=== PATIENT | male | born 1995 | race Caucasian/White ===

== ENCOUNTER 2016-04-22 10:33 | Inpatient (IN) | payer MEDICARE, MEDICAID ==
[2016-04-22 11:39] LABS: Hematocrit 47 % (42-52); Hemoglobin 15.7 g/dl (14.0-18.0); Mean Corpuscular HGB Conc 33 g/dl (31-36); Mean Corpuscular Hemoglobin 27 pg (27-31); Mean Corpuscular Volume 80 fL (80-94); Mean Platelet Volume 7 um3 (7.4-10.4); Red Blood Count 5.94 10^6/ul (4.0-5.4); Red Cell Distribution Width 14 % (10.5-15); White Blood Count 5.9 10^3/ul (3.5-10.8)
[2016-04-22 11:58] LABS: Benzodiazepine Urine Screen None Detected (None Detect)
[2016-04-22 11:58] LABS: ALT 31 U/L (7-52); AST 24 U/L (13-39); Albumin 4.9 g/dL (3.2-5.2); Alkaline Phosphatase 68 U/L (34-104); Anion Gap 6 mmol/L (2-11); BUN/Creatinine Ratio 12.7 (8-20); Blood Urea Nitrogen 13 mg/dL (6-24); CO2 Carbon Dioxide 26 mmol/L (22-32); Calcium 9.6 mg/dL (8.6-10.3); Chloride 105 mmol/L (101-111); EGFR African American 117.5 (>60); EGFR Non-African American 91.3 (>60); Globulin 2.5 g/dL (2-4); Glucose 88 mg/dL (70-100); Potassium 4.3 mmol/L (3.5-5.0); Sodium 137 mmol/L (133-145); Total Protein 7.4 g/dL (6.4-8.9)
[2016-04-22 12:02] LABS: Urine Bilirubin Negative (Negative); Urine Glucose Negative (Negative); Urine Nitrite Negative (Negative)
[2016-04-22 12:17] LABS: Acetaminophen < 15 mcg/mL; Alcohol < 10 mg/dL (<10); Salicylate < 2.50 mg/dL (<30)
[2016-04-22 12:27] LABS: TSH (Thyroid Stimulating Horm) 2.07 mcIU/mL (0.34-5.60)
[2016-04-22] MEDS ORDERED: Al Hydrox/Mg Hydrox/Simet LIQ* 30 ML UDC PO PRN (20:48)
[2016-04-23] MEDS: Vitamin THERAPEUTIC TAB PO SCH (09:43)
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
[2016-04-23] MEDS ORDERED: Nicotine Inhaler* 10 MG AMP INH PRN (21:23)
[2016-04-24] MEDS: Vitamin THERAPEUTIC TAB PO SCH (09:20)
--- NOTE | 2016-04-24 11:23 | PN ---
MHU: Group Therapy Note - Service Type Service Type: 80525 Group Psychotherapy - Cognitive Behavioral Group Therapy ( CBT):Patient was attentive and participatory in CBT programming this morning, and remained in good behavioral control. Patient expressed positive insights regarding relevant treatment interventions and goals.
--- NOTE | 2016-04-24 15:44 | PN ---
Subjective - Subjective Service Type: 24576 Hosp care 15 min low complexity Subjective: Mike reports that his idleness has been contributory to worsening of voices and visions, and would like to have access to his Nook if the camera can be disabled. He reports a fluctuating mood, more down today. He has had no thoughts to harm himself or others. Objective - Appearance Appearance: Well Developed/Nourished, Healthy Appearing Dysmorphic Features: No Hygiene: Normal Grooming: Fairly Well Kept - Behavior Psychomotor Activities: Normal Exhibits Abnormal Movement: No - Attitude and Relatedness Attitude and Relatedness: Cooperative Eye Contact: Good - Speech Quality: Unpressured Latencies: Normal Quantity: Appropriate - Mood Patient's Decription of Mood: "Down today" - Affect Observed Affect: Fair Affect Consistent with: Euthymia - Thought Process Patient's Thought Process: Coherent, Goal Directed Thought Content: No Passive Wish, No Suicidal Planning, No Homicidal Ideation, No Paranoid Ideation - Sensorium Experiencing Hallucinations: Yes Type of Hallucinations: Visual: Yes, Auditory: Yes, Command: No - Level of Consciousness Level of Consciousness: Alert Orientation: Yes Intact, Yes Orientated to Time, Yes Orientated to Place, Yes Orientated to Person - Impulse Control Impulse Control: Intact - Insight and Judgement Insight and Judgement: Fair - Group Participation Particating in Group Activities: Yes - Medication Management Medication Management Adherence: Yes Assessment - Assessment Merits Inpatient Hospitalization: For Immediate Safety, For Stabilization, To Initiate Treatment, For Ongoing Evaluation, For Discharge Planning, Pending Safe DC Plan Inpatient DSM-IV Dx: Psychotic disorder, not otherwise specified. Rule out schizoaffective disorder, depressive type. Rule out schizophrenia. Also, rule out post-traumatic stress disorder with overtly psychotic experience, dissociative phenomenology. Clinical Impression: Mr. Katrina Reid is a 20-year-old male with a chronic psychotic disorder, most likely schizophrenia who reports worsened symptoms of psychosis with intrusive nightmares and with onset of malignant voices atop nearly constant background of usually benign voices. He seeks stabilization here against this troubling exacerbation of a chronic psychosis. We will be monitoring his mental status and safety. We will be encouraging his engagement in the therapeutic milieu and groups. We will be gathering collateral from his providers at [facility]. We will be considering with his providers whether a change of medication might be in order , although it does seem as though his report of circumstances would line up with having lost supports by transition from [facility] into independent living, so this may be the most productive change for him. Perhaps we can explore with him other living arrangements that may give him more supports. He states that when he does not have things to distract himself, the malignant psychotic experience worsens. He requests being able to use, for example his Nook reading device, which unfortunately has a camera and so we will not be able to permit this. We will try to find reading materials that may help him to stay distracted from his psychotic experience. 04.24.16 Today Mike reports worsening AH/VH with voices/visions of the more evil creatures that are part of his experience when he is not adequately occupied by, for example, reading on his nook. He agrees to take Zyprexa if these hallucinations persist and are disturbing. Plan - Plan Treatment Plan: Name: MIKE REID Birthdate: 1995 [id number] Abilify Maintenna due on the d. Add Zyprexa 5 mg po q4hrs prn agitation/ psychosis. Monitor MS and safety. Encourage groups/milieu. Gather collateral. Plan for discharge back to care with [facility]. Continued Medication Management: Different Medication Medications: Current Medications Acetaminophen (Tylenol Tab*) 650 mg PO Q4H PRN PRN Reason: PAIN or TEMP > 101 F Al Hydrox/Mg Hydrox/Simethicone (Maalox Plus*) 30 ml PO Q4H PRN PRN Reason: INDIGESTION Multivitamins (Theragran Tab*) 1 tab PO DAILY JOANN Last Admin: 04/24/16 09:20 Dose: Not Given Nicotine (Nicotine Inhaler*) 10 mg INH Q2H PRN PRN Reason: CRAVING Abilify Maintenna due 04.27.16 - Discharge Plan Discharge Plan: Outpatient Follow Up Outpatient Program: [facility]
[2016-04-24] MEDS ORDERED: OLANzapine TAB*ODT* 5 MG PO PRN (15:45)
--- NOTE | 2016-04-24 22:24 | ED ---
Estrellita Glaser Michael, scribed for Bandar Dumont MD on 04/22/16 at 1134 . Psychiatric Complaint - HPI Summary HPI Summary: 20 y/o male comes to the ED presenting with auditory hallucinations that have been present for the past month. The pt reports that he has not listened to the voices, but came into the ED just in case if they worsen. The PMHx is significant for hallucinations, depression, and SI attempt. He takes Ability shot once a month. - History Of Current Complaint Chief Complaint: EDMentalHealth Time Seen by Provider: 04/22/16 11:10 Hx Obtained From: Patient, Medical Records Onset/Duration: Gradual Onset, Lasting Weeks, Still Present Timing: Constant Severity Initially: Mild Severity Currently: Mild Character: Fearful Alleviating Factor(s): Nothing Associated Signs And Symptoms: Positive: Hallucinating - auditory delusions Related History: Positive For: Prior Psychiatric Issues Has Suicidal: Denies: Thoughts, With A Plan - Allergies/Home Medications Allergies/Adverse Reactions: Allergies Allergy/AdvReac Type Severity Reaction Status Date / Time Amoxicillin Allergy Unknown Hives Verified 04/24/16 14:11 PMH/Surg Hx/FS Hx/Imm Hx Psychiatric History: Reports: Hx Anxiety, Hx Depression, Hx Post Traumatic Stress Disorder, Hx Inpatient Treatment, Hx Community Mental Health Tx, Hx Bipolar Disorder Denies: Hx Eating Disorder, Hx of Violent Episodes Against Others - unable to confirm Infectious Disease History: No Infectious Disease History: Denies: Traveled Outside the [place] in Last 30 Days - Family History Known Family History: Positive: None Family History: pt denies a significant FHx - Social History Occupation: Student Lives: Alone Alcohol Use: None Hx Substance Use: No Substance Use Type: Reports: None Hx Tobacco Use: No Smoking Status (MU): Never Smoked Tobacco Review of Systems Negative: Fever Positive: Other - auditory hallucinations All Other Systems Reviewed And Are Negative: Yes Physical Exam Triage Information Reviewed: Yes Vital Signs On Initial Exam: Initial Vitals Temp Pulse Resp BP Pulse Ox 98.2 F 79 17 139/73 100 04/22/16 10:37 04/22/16 10:37 04/22/16 10:37 04/22/16 10:37 04/22/16 10:37 Vital Signs Reviewed: Yes Appearance: Positive: Well-Appearing, No Pain Distress Skin: Positive: Warm, Skin Color Reflects Adequate Perfusion Head/Face: Positive: Normal Head/Face Inspection Eyes: Positive: Normal ENT: Positive: Normal ENT inspection Neck: Positive: Supple, Nontender Respiratory/Lung Sounds: Positive: Clear to Auscultation, Breath Sounds Present Cardiovascular: Positive: RRR Abdomen Description: Positive: Nontender, Soft Bowel Sounds: Positive: Present Musculoskeletal: Positive: Normal Neurological: Positive: Normal, Sensory/Motor Intact Psychiatric: Positive: Depressed Diagnostics - Vital Signs Vital Signs Temp Pulse Resp BP Pulse Ox 04/22/16 10:37 98.2 F 79 17 139/73 100 - Laboratory Lab Results: Lab Results 04/22/16 04/22/16 04/22/16 Range/Units 11:29 11:29 11:35 WBC 5.9 (3.5-10.8) 10^3/ul RBC 5.94 H (4.0-5.4) 10^6/ul Hgb 15.7 (14.0-18.0) g/dl Hct 47 (42-52) % MCV 80 (80-94) fL MCH 27 (27-31) pg MCHC 33 (31-36) g/dl RDW 14 (10.5-15) % Plt Count 245 (150-450) 10^3/ul MPV 7 L (7.4-10.4) um3 Neut % (Auto) 56.6 (38-83) % Lymph % (Auto) 33.2 (25-47) % Upson % (Auto) 7.5 (1-9) % Eos % (Auto) 1.5 (0-6) % Baso % (Auto) 1.2 (0-2) % Absolute Neuts (auto) 3.4 (1.5-7.7) 10^3/ul Absolute Lymphs (auto) 2.0 (1.0-4.8) 10^3/ul Absolute Monos (auto) 0.4 (0-0.8) 10^3/ul Absolute Eos (auto) 0.1 (0-0.6) 10^3/ul Absolute Basos (auto) 0.1 (0-0.2) 10^3/ul Absolute Nucleated RBC 0.01 10^3/ul Nucleated RBC % 0.1 Sodium 137 (133-145) mmol/L Potassium 4.3 (3.5-5.0) mmol/L Chloride 105 (101-111) mmol/L Carbon Dioxide 26 (22-32) mmol/L Anion Gap 6 (2-11) mmol/L BUN 13 (6-24) mg/dL Creatinine 1.02 (0.67-1.17) mg/dL Est GFR ( Amer) 117.5 (>60) Est GFR (Non-Af Amer) 91.3 (>60) BUN/Creatinine Ratio 12.7 (8-20) Glucose 88 (70-100) mg/dL Calcium 9.6 (8.6-10.3) mg/dL Total Bilirubin 0.40 (0.2-1.0) mg/dL AST 24 (13-39) U/L ALT 31 (7-52) U/L Alkaline Phosphatase 68 (34-104) U/L Total Protein 7.4 (6.4-8.9) g/dL Albumin 4.9 (3.2-5.2) g/dL Globulin 2.5 (2-4) g/dL Albumin/Globulin Ratio 2.0 (1-3) TSH 2.07 (0.34-5.60) mcIU/mL Urine Color Yellow Urine Appearance Clear Urine pH 5.0 (5-9) Ur Specific [place] 1.019 (1.010-1.030) Urine Protein Negative (Negative) Urine Ketones Negative (Negative) Urine Blood Negative (Negative) Urine Nitrate Negative (Negative) Urine Bilirubin Negative (Negative) Urine Urobilinogen Negative (Negative) Ur Leukocyte Esterase Negative (Negative) Urine Glucose Negative (Negative) Salicylates < 2.50 (<30) mg/dL Urine Opiates Screen (None Detect) Acetaminophen < 15 mcg/mL Ur Barbiturates Screen (None Detect) Ur Phencyclidine Scrn (None Detect) Ur Amphetamines Screen (None Detect) U Benzodiazepines Scrn (None Detect) Urine Cocaine Screen (None Detect) U Cannabinoids Screen (None Detect) Serum Alcohol < 10 (<10) mg/dL 04/22/ Range/Units 11:35 WBC (3.5-10.8) 10^3/ul RBC (4.0-5.4) 10^6/ul Hgb (14.0-18.0) g/dl Hct (42-52) % MCV (80-94) fL MCH (27-31) pg MCHC (31-36) g/dl RDW (10.5-15) % Plt Count (150-450) 10^3/ul MPV (7.4-10.4) um3 Neut % (Auto) (38-83) % Lymph % (Auto) (25-47) % Upson % (Auto) (1-9) % Eos % (Auto) (0-6) % Baso % (Auto) (0-2) % Absolute Neuts (auto) (1.5-7.7) 10^3/ul Absolute Lymphs (auto) (1.0-4.8) 10^3/ul Absolute Monos (auto) (0-0.8) 10^3/ul Absolute Eos (auto) (0-0.6) 10^3/ul Absolute Basos (auto) (0-0.2) 10^3/ul Absolute Nucleated RBC 10^3/ul Nucleated RBC % Sodium (133-145) mmol/L Potassium (3.5-5.0) mmol/L Chloride (101-111) mmol/L Carbon Dioxide (22-32) mmol/L Anion Gap (2-11) mmol/L BUN (6-24) mg/dL Creatinine (0.67-1.17) mg/dL Est GFR ( Amer) (>60) Est GFR (Non-Af Amer) (>60) BUN/Creatinine Ratio (8-20) Glucose (70-100) mg/dL Calcium (8.6-10.3) mg/dL Total Bilirubin (0.2-1.0) mg/dL AST (13-39) U/L ALT (7-52) U/L Alkaline Phosphatase (34-104) U/L Total Protein (6.4-8.9) g/dL Albumin (3.2-5.2) g/dL Globulin (2-4) g/dL Albumin/Globulin Ratio (1-3) TSH (0.34-5.60) mcIU/mL Urine Color Urine Appearance Urine pH (5-9) Ur Specific [place] (1.010-1.030) Urine Protein (Negative) Urine Ketones (Negative) Urine Blood (Negative) Urine Nitrate (Negative) Urine Bilirubin (Negative) Urine Urobilinogen (Negative) Ur Leukocyte Esterase (Negative) Urine Glucose (Negative) Salicylates (<30) mg/dL Urine Opiates Screen None detected (None Detect) Acetaminophen mcg/mL Ur Barbiturates Screen None detected (None Detect) Ur Phencyclidine Scrn None detected (None Detect) Ur Amphetamines Screen None detected (None Detect) U Benzodiazepines Scrn None detected (None Detect) Urine Cocaine Screen None detected (None Detect) U Cannabinoids Screen None detected (None Detect) Serum Alcohol (<10) mg/dL Result Diagrams: 04/22/16 11:29 04/22/16 11:29 Lab Statement: Any lab studies that have been ordered have been reviewed, and results considered in the medical decision making process. Course/Dx - Course Assessment/Plan: Pt is cleared for MHE at 1206 - Differential Dx/Clinical Impression Provider Diagnosis: Acute psychosis Discharge - Discharge Plan Condition: Guarded Disposition: ADMITTED TO [facility] documentation as recorded by the Estrellita ross Michael accurately reflects the service I personally performed and the decisions made by , Bandar Dumont MD.
[2016-04-25] MEDS: Vitamin THERAPEUTIC TAB PO SCH (09:22)
--- NOTE | 2016-04-25 12:05 | PN ---
Subjective - Subjective Service Type: 75169 Hosp care 15 min low complexity Subjective: Reports still some malignant AH/VH, but mostly benign at this point. No physical complaints. Pleasant and collaborative. Objective - Appearance Appearance: Well Developed/Nourished, Obese Dysmorphic Features: No Hygiene: Normal Grooming: Fairly Well Kept - Behavior Psychomotor Activities: Normal Exhibits Abnormal Movement: No - Attitude and Relatedness Attitude and Relatedness: Well Related Eye Contact: Good - Speech Quality: Unpressured Latencies: Normal Quantity: Appropriate - Mood Patient's Decription of Mood: "Okay" - Affect Observed Affect: Fair Affect Consistent with: Euthymia - Thought Process Patient's Thought Process: Coherent, Goal Directed Thought Content: No Passive Wish, No Suicidal Planning, No Homicidal Ideation, No Paranoid Ideation - Sensorium Experiencing Hallucinations: No, Sensorium is Clear Type of Hallucinations: Visual: No, Auditory: No, Command: No - Level of Consciousness Level of Consciousness: Alert Orientation: Yes Intact, Yes Orientated to Time, Yes Orientated to Place, Yes Orientated to Person - Impulse Control Impulse Control: Intact - Insight and Judgement Insight and Judgement: Fair - Group Participation Particating in Group Activities: Yes - Medication Management Medication Management Adherence: Yes Assessment - Assessment Merits Inpatient Hospitalization: For Stabilization, For Ongoing Evaluation, Consolidate Improvements, For Discharge Planning Inpatient DSM-IV Dx: Psychotic disorder, not otherwise specified. Rule out schizoaffective disorder, depressive type. Rule out schizophrenia. Also, rule out post-traumatic stress disorder with overtly psychotic experience, dissociative phenomenology. Clinical Impression: Mr. Katrina Reid is a 20-year-old male with a chronic psychotic disorder, most likely schizophrenia who reports worsened symptoms of psychosis with intrusive nightmares and with onset of malignant voices atop nearly constant background of usually benign voices. He seeks stabilization here against this troubling exacerbation of a chronic psychosis. We will be monitoring his mental status and safety. We will be encouraging his engagement in the therapeutic milieu and groups. We will be gathering collateral from his providers at [facility]. We will be considering with his providers whether a change of medication might be in order , although it does seem as though his report of circumstances would line up with having lost supports by transition from [facility] into independent living, so this may be the most productive change for him. Perhaps we can explore with him other living arrangements that may give him more supports. He states that when he does not have things to distract himself, the malignant psychotic experience worsens. He requests being able to use, for example his Nook reading device, which unfortunately has a camera and so we will not be able to permit this. We will try to find reading materials that may help him to stay distracted from his psychotic experience. 04.24.16 Today Mike reports worsening AH/VH with voices/visions of the more evil creatures that are part of his experience when he is not adequately occupied by, for example, reading on his nook. He agrees to take Zyprexa if these hallucinations persist and are disturbing. 04.25.[address] return call from Dr Dilshad rosas of [facility], confirmed at 400 mg q28d dosing per [facility], but with last 2 fills 03.16.16, 04.06.16. Still wants a Nook without a camera, trying to get that through his therapist. Plan - Plan Treatment Plan: Name: MIKE REID Birthdate: 1995 [id number] [facility] due on the 22d per patient: working on clarifying this with Dr Sampson. Continue additional Zyprexa 5 mg po q4hrs prn agitation/psychosis. Monitor MS and safety. Encourage groups/milieu. Gather collateral. Plan for discharge back to care with [facility]. Continued Medication Management: Continue Outpt Medication Medications: Current Medications Acetaminophen (Tylenol Tab*) 650 mg PO Q4H PRN PRN Reason: PAIN or TEMP > 101 F Al Hydrox/Mg Hydrox/Simethicone (Maalox Plus*) 30 ml PO Q4H PRN PRN Reason: INDIGESTION Multivitamins (Theragran Tab*) 1 tab PO DAILY JOANN Last Admin: 04/25/16 09:22 Dose: Not Given Nicotine (Nicotine Inhaler*) 10 mg INH Q2H PRN PRN Reason: CRAVING Olanzapine (Zyprexa * Tab Odt) 5 mg PO Q4H PRN PRN Reason: PSYCHOSIS - Discharge Plan Discharge Plan: Outpatient Follow Up Outpatient Program: [facility]
--- NOTE | 2016-04-25 13:38 | PN ---
MHU: Group Therapy Note - Service Type Service Type: [id number] Group Psychotherapy - Cognitive Behavioral Group Therapy ( CBT):Patient was attentive and participatory in CBT programming this morning, and remained in good behavioral control. Patient expressed positive insights regarding relevant treatment interventions and goals.
[2016-04-26] MEDS: Vitamin THERAPEUTIC TAB PO SCH (09:39)
--- NOTE | 2016-04-26 11:24 | PN ---
MHU: Group Therapy Note - Service Type Service Type: [id number] Group Psychotherapy - Cognitive Behavioral Group Therapy ( CBT):Patient was attentive and participatory in CBT programming this morning, and remained in good behavioral control. Patient expressed positive insights regarding relevant treatment interventions and goals.
--- NOTE | 2016-04-26 14:51 | PN ---
Subjective - Subjective Service Type: 12545 Hosp care 15 min low complexity Subjective: Mike was found happily playing cards with Day. He reported remission of malignant AH, back to benevolent baseline. He generally reports improvement and stability in his mood and no dangerous intent or plan. Objective - Appearance Appearance: Well Developed/Nourished Dysmorphic Features: No Hygiene: Normal Grooming: Well Kept - Behavior Psychomotor Activities: Normal Exhibits Abnormal Movement: No - Attitude and Relatedness Attitude and Relatedness: Well Related Eye Contact: Good - Speech Quality: Unpressured Latencies: Normal Quantity: Appropriate - Mood Patient's Decription of Mood: "Good" - Affect Observed Affect: Good Affect Consistent with: Euthymia - Thought Process Patient's Thought Process: Coherent, Goal Directed Thought Content: No Passive Wish, No Suicidal Planning, No Homicidal Ideation, No Paranoid Ideation - Sensorium Experiencing Hallucinations: No, Sensorium is Clear Type of Hallucinations: Visual: No, Auditory: Yes - benign chronic baseline, Command: No - Level of Consciousness Level of Consciousness: Alert Orientation: Yes Intact, Yes Orientated to Time, Yes Orientated to Place, Yes Orientated to Person - Impulse Control Impulse Control: Intact - Insight and Judgement Insight and Judgement: Fair - Group Participation Particating in Group Activities: Yes - Medication Management Medication Management Adherence: Yes Assessment - Assessment Merits Inpatient Hospitalization: Consolidate Improvements, For Discharge Planning Inpatient DSM-IV Dx: Psychotic disorder, not otherwise specified. Rule out schizoaffective disorder, depressive type. Rule out schizophrenia. Also, rule out post-traumatic stress disorder with overtly psychotic experience, dissociative phenomenology. Clinical Impression: Mr. Katrina Reid is a 20-year-old male with a chronic psychotic disorder, most likely schizophrenia who reports worsened symptoms of psychosis with intrusive nightmares and with onset of malignant voices atop nearly constant background of usually benign voices. He seeks stabilization here against this troubling exacerbation of a chronic psychosis. We will be monitoring his mental status and safety. We will be encouraging his engagement in the therapeutic milieu and groups. We will be gathering collateral from his providers at [facility]. We will be considering with his providers whether a change of medication might be in order , although it does seem as though his report of circumstances would line up with having lost supports by transition from [facility] into independent living, so this may be the most productive change for him. Perhaps we can explore with him other living arrangements that may give him more supports. He states that when he does not have things to distract himself, the malignant psychotic experience worsens. He requests being able to use, for example his Nook reading device, which unfortunately has a camera and so we will not be able to permit this. We will try to find reading materials that may help him to stay distracted from his psychotic experience. 16 Today Mike reports worsening AH/VH with voices/visions of the more evil creatures that are part of his experience when he is not adequately occupied by, for example, reading on his nook. He agrees to take Zyprexa if these hallucinations persist and are disturbing. [address] call from Dr Dilshad rosas of [facility], confirmed at 400 mg q28d dosing per [facility], but with last 2 fills 16, 16. Still wants a Nook without a camera, trying to get that through his therapist. 04.26.16 Improved mood and remission of SI. Will need placement into more stable housing at / to improve safety, likely [facility]. Plan - Plan Treatment Plan: Name: MIKE REID Birthdate: 1995 [id number] [facility] 400 mg given yesterday. Continue additional Zyprexa 5 mg po q4hrs prn agitation/psychosis. Monitor MS and safety. Encourage groups/ milieu. Plan for discharge back to care with [facility] while living in [facility], ideally. Continued Medication Management: Continue Outpt Medication Medications: Current Medications Acetaminophen (Tylenol Tab*) 650 mg PO Q4H PRN PRN Reason: PAIN or TEMP > 101 F Al Hydrox/Mg Hydrox/Simethicone (Maalox Plus*) 30 ml PO Q4H PRN PRN Reason: INDIGESTION Aripiprazole ([facility] (Nf)) 400 mg IM Q28D [facility] Last Admin: 04/25/16 16:37 Dose: 400 mg Multivitamins (Theragran Tab*) 1 tab PO DAILY JOANN Last Admin: 12/21/16 09:39 Dose: Not Given Nicotine (Nicotine Inhaler*) 10 mg INH Q2H PRN PRN Reason: CRAVING Olanzapine (Zyprexa * Tab Odt) 5 mg PO Q4H PRN PRN Reason: PSYCHOSIS - Discharge Plan Discharge Plan: Outpatient Follow Up Outpatient Program: [facility]
[2016-04-27] MEDS: Vitamin THERAPEUTIC TAB PO SCH (08:00)
--- NOTE | 2016-04-27 11:31 | PN ---
MHU: Group Therapy Note - Service Type Service Type: [id number] Group Psychotherapy - Cognitive Behavioral Group Therapy ( CBT):Patient was attentive and participatory in CBT programming this morning, and remained in good behavioral control. Patient expressed positive insights regarding relevant treatment interventions and goals.
--- NOTE | 2016-04-27 14:18 | PN ---
Subjective - Subjective Service Type: 40389 Hosp care 15 min low complexity Subjective: Mike is cheerful today, reporting remitting AH back down to benign commentary , remission of other psychosis. Denies dangerous intent or plan. Complained of urethral discharge, not smelly, not painful, not semen. Objective - Appearance Appearance: Well Developed/Nourished, Obese Dysmorphic Features: No Hygiene: Normal Grooming: Well Kept - Behavior Psychomotor Activities: Normal Exhibits Abnormal Movement: No - Attitude and Relatedness Attitude and Relatedness: Well Related Eye Contact: Good - Speech Quality: Unpressured Latencies: Normal Quantity: Appropriate - Mood Patient's Decription of Mood: "Good" - Affect Observed Affect: Good Affect Consistent with: Euthymia - Thought Process Patient's Thought Process: Coherent, Goal Directed Thought Content: No Passive Wish, No Suicidal Planning, No Homicidal Ideation, No Paranoid Ideation - Sensorium Experiencing Hallucinations: Yes Type of Hallucinations: Visual: No, Auditory: Yes - but benign now, Command: No - Level of Consciousness Level of Consciousness: Alert Orientation: Yes Intact, Yes Orientated to Time, Yes Orientated to Place, Yes Orientated to Person - Impulse Control Impulse Control: Intact - Insight and Judgement Insight and Judgement: Fair - Group Participation Particating in Group Activities: Yes - Medication Management Medication Management Adherence: Yes Assessment - Assessment Merits Inpatient Hospitalization: For Stabilization, Consolidate Improvements, For Discharge Planning Inpatient DSM-IV Dx: Psychotic disorder, not otherwise specified. Rule out schizoaffective disorder, depressive type. Rule out schizophrenia. Also, rule out post-traumatic stress disorder with overtly psychotic experience, dissociative phenomenology. Clinical Impression: Mr. Katrina Reid is a 20-year-old male with a chronic psychotic disorder, most likely schizophrenia who reports worsened symptoms of psychosis with intrusive nightmares and with onset of malignant voices atop nearly constant background of usually benign voices. He seeks stabilization here against this troubling exacerbation of a chronic psychosis. We will be monitoring his mental status and safety. We will be encouraging his engagement in the therapeutic milieu and groups. We will be gathering collateral from his providers at [facility]. We will be considering with his providers whether a change of medication might be in order , although it does seem as though his report of circumstances would line up with having lost supports by transition from [facility] into independent living, so this may be the most productive change for him. Perhaps we can explore with him other living arrangements that may give him more supports. He states that when he does not have things to distract himself, the malignant psychotic experience worsens. He requests being able to use, for example his Nook reading device, which unfortunately has a camera and so we will not be able to permit this. We will try to find reading materials that may help him to stay distracted from his psychotic experience. 16 Today Mike reports worsening AH/VH with voices/visions of the more evil creatures that are part of his experience when he is not adequately occupied by, for example, reading on his nook. He agrees to take Zyprexa if these hallucinations persist and are disturbing. [address] call from Dr Dilshad rosas of [facility], confirmed at 400 mg q28d dosing per [facility], but with last 2 fills 16, 16. Still wants a Nook without a camera, trying to get that through his therapist. 04.26.16 Improved mood and remission of SI. Will need placement into more stable housing at d/ to improve safety, [facility]. 04.27.16 Awaiting stable domiciling through [place] to prevent re- decompensation and re-hospitalization. Compliant with meds, groups. Pleasant and collaborative. Plan - Plan Treatment Plan: Name: MIKE REID Birthdate: 1995 [id number] [facility] 400 mg given yesterday. Continue additional Zyprexa 5 mg po q4hrs prn agitation/psychosis. Monitor MS and safety. Encourage groups/ milieu. Plan for discharge back to care with [facility]. Continued Medication Management: Continue Outpt Medication Medications: Current Medications Acetaminophen (Tylenol Tab*) 650 mg PO Q4H PRN PRN Reason: PAIN or TEMP > 101 F Al Hydrox/Mg Hydrox/Simethicone (Maalox Plus*) 30 ml PO Q4H PRN PRN Reason: INDIGESTION Aripiprazole ([facility] (Nf)) 400 mg IM Q28D [facility] Last Admin: 04/25/16 16:37 Dose: 400 mg Multivitamins (Theragran Tab*) 1 tab PO DAILY JOANN Last Admin: 04/27/16 08:00 Dose: Not Given Nicotine (Nicotine Inhaler*) 10 mg INH Q2H PRN PRN Reason: CRAVING Olanzapine (Zyprexa * Tab Odt) 5 mg PO Q4H PRN PRN Reason: PSYCHOSIS - Discharge Plan Discharge Plan: Outpatient [facility]
[2016-04-27 16:19] LABS: Urine Bilirubin Negative (Negative); Urine Glucose Negative (Negative); Urine Nitrite Negative (Negative)
[2016-04-28] MEDS: Vitamin THERAPEUTIC TAB PO SCH (08:54)
--- NOTE | 2016-04-28 11:45 | PN ---
MHU: Group Therapy Note - Service Type Service Type: [id number] Group Psychotherapy - Cognitive Behavioral Group Therapy ( CBT):Patient was attentive and participatory in CBT programming this morning, and remained in good behavioral control. Patient expressed positive insights regarding relevant treatment interventions and goals.
--- NOTE | 2016-04-28 15:58 | PN ---
Subjective - Subjective Service Type: 01587 Hosp care 15 min low complexity Subjective: Mike reluctantly agrees to plan toward discharge next week when we can better arrange for aftercare and domiciling. His mother agrees with discharge next week. She plans to come visit him on [place]. He remains pleasant and collaborative with care. He reports ongoing chronic benign AH, but remission of other psychotic symptoms. He reports no dangerous intent or plan. Staff has found a way to get him a Nook reader without a functional camera, which will allow him the helpful distraction of reading. Objective - Appearance Appearance: Obese Dysmorphic Features: No Hygiene: Normal Grooming: Fairly Well Kept - Behavior Psychomotor Activities: Normal Exhibits Abnormal Movement: No - Attitude and Relatedness Attitude and Relatedness: Well Related Eye Contact: Good - Speech Quality: Unpressured Latencies: Normal Quantity: Appropriate - Mood Patient's Decription of Mood: "Good" - Affect Observed Affect: Good Affect Consistent with: Euthymia - Thought Process Patient's Thought Process: Coherent, Goal Directed Thought Content: No Passive Wish, No Suicidal Planning, No Homicidal Ideation, No Paranoid Ideation - Sensorium Experiencing Hallucinations: No, Sensorium is Clear Type of Hallucinations: Visual: No, Auditory: Yes, Command: No - Level of Consciousness Level of Consciousness: Alert Orientation: Yes Intact, Yes Orientated to Time, Yes Orientated to Place, Yes Orientated to Person - Impulse Control Impulse Control: Intact - Insight and Judgement Insight and Judgement: Fair - Group Participation Particating in Group Activities: Yes - Medication Management Medication Management Adherence: Yes Assessment - Assessment Merits Inpatient Hospitalization: Consolidate Improvements, For Discharge Planning Inpatient DSM-IV Dx: Psychotic disorder, not otherwise specified. Rule out schizoaffective disorder, depressive type. Rule out schizophrenia. Also, rule out post-traumatic stress disorder with overtly psychotic experience, dissociative phenomenology. Clinical Impression: Mr. Katrina Reid is a 20-year-old male with a chronic psychotic disorder, most likely schizophrenia who reports worsened symptoms of psychosis with intrusive nightmares and with onset of malignant voices atop nearly constant background of usually benign voices. He seeks stabilization here against this troubling exacerbation of a chronic psychosis. We will be monitoring his mental status and safety. We will be encouraging his engagement in the therapeutic milieu and groups. We will be gathering collateral from his providers at [facility]. We will be considering with his providers whether a change of medication might be in order , although it does seem as though his report of circumstances would line up with having lost supports by transition from [facility] into independent living, so this may be the most productive change for him. Perhaps we can explore with him other living arrangements that may give him more supports. He states that when he does not have things to distract himself, the malignant psychotic experience worsens. He requests being able to use, for example his Nook reading device, which unfortunately has a camera and so we will not be able to permit this. We will try to find reading materials that may help him to stay distracted from his psychotic experience. 19.16 Today Mike reports worsening AH/VH with voices/visions of the more evil creatures that are part of his experience when he is not adequately occupied by, for example, reading on his nook. He agrees to take Zyprexa if these hallucinations persist and are disturbing. 04.25.[address] return call from Dr Dilshad rosas of [facility], confirmed at 400 mg q28d dosing per [facility], but with last 2 fills 11.10.16, 12.1.16. Still wants a Nook without a camera, trying to get that through his therapist. 21.16 Improved mood and remission of SI. Will need placement into more stable housing at / to improve safety, likely [facility] [facility]. 04.27.16 Awaiting stable domiciling through [place] to prevent re- decompensation and re-hospitalization. Compliant with meds, groups. Pleasant and collaborative. 23.16 Mike awaits placement into [place] housing and will f/u with [facility] after discharge. He is pleasant and collaborative and reports stable good mood with remission of psychosis aside from benign AH. Plan - Plan Treatment Plan: Name: MIKE REID Birthdate: 1995 [id number] [facility] 400 mg to be given slightly more frequently than q28 days. Continue to make available additional Zyprexa 5 mg po q4hrs prn agitation/ psychosis, but none used. Monitor MS and safety. Encourage groups/milieu. Plan for discharge back to care with [facility] after return to [facility]. May use [employer] reader without functional camera. Continued Medication Management: Continue Outpt Medication Medications: Current Medications Acetaminophen (Tylenol Tab*) 650 mg PO Q4H PRN PRN Reason: PAIN or TEMP > 101 F Al Hydrox/Mg Hydrox/Simethicone (Maalox Plus*) 30 ml PO Q4H PRN PRN Reason: INDIGESTION Aripiprazole (Ravi Meneses (Nf)) 400 mg IM Q28D [facility] Last Admin: 04/25/16 16:37 Dose: 400 mg Multivitamins (Theragran Tab*) 1 tab PO DAILY [facility] Last Admin: 04/28/16 08:54 Dose: Not Given Nicotine (Nicotine Inhaler*) 10 mg INH Q2H PRN PRN Reason: CRAVING Olanzapine (Zyprexa * Tab Odt) 5 mg PO Q4H PRN PRN Reason: PSYCHOSIS - Discharge Plan Discharge Plan: Outpatient Follow Up Outpatient Program: [facility]
[2016-04-29] MEDS: Vitamin THERAPEUTIC TAB PO SCH (09:49)
[2016-04-29] MEDS: Acetaminophen TAB* 325 MG PO PRN (10:39)
[2016-04-30] MEDS: Vitamin THERAPEUTIC TAB PO SCH (09:26)
[2016-05-01] MEDS: Vitamin THERAPEUTIC TAB PO SCH (08:24)
--- NOTE | 2016-05-01 13:51 | PN ---
Subjective - Subjective Service Type: 83603 Hosp care 15 min low complexity Subjective: Mike remains pleasant and collaborative. He continues to have baseline AH/ VH. He looks forward to discharge to a [facility] program. Objective - Appearance Appearance: Well Developed/Nourished Dysmorphic Features: No Hygiene: Normal Grooming: Well Kept - Behavior Psychomotor Activities: Normal Exhibits Abnormal Movement: No - Attitude and Relatedness Attitude and Relatedness: Well Related Eye Contact: Good - Speech Quality: Unpressured Latencies: Normal Quantity: Appropriate - Mood Patient's Decription of Mood: "Good" - Affect Observed Affect: Good Affect Consistent with: Euthymia - Thought Process Patient's Thought Process: Coherent, Goal Directed Thought Content: No Passive Wish, No Suicidal Planning, No Homicidal Ideation, No Paranoid Ideation - Sensorium Experiencing Hallucinations: No, Sensorium is Clear Type of Hallucinations: Visual: Yes - benign chronic stuff, Auditory: Yes - benign chronic stuff, Command: No - Level of Consciousness Level of Consciousness: Alert Orientation: No Intact, No Orientated to Time, No Orientated to Place, No Orientated to Person - Impulse Control Impulse Control: Intact - Insight and Judgement Insight and Judgement: Fair - Group Participation Particating in Group Activities: Yes - Medication Management Medication Management Adherence: Yes Assessment - Assessment Merits Inpatient Hospitalization: Consolidate Improvements, For Discharge Planning Inpatient DSM-IV Dx: Psychotic disorder, not otherwise specified. Rule out schizoaffective disorder, depressive type. Rule out schizophrenia. Also, rule out post-traumatic stress disorder with overtly psychotic experience, dissociative phenomenology. Clinical Impression: Mr. Katrina Reid is a 20-year-old male with a chronic psychotic disorder, most likely schizophrenia who reports worsened symptoms of psychosis with intrusive nightmares and with onset of malignant voices atop nearly constant background of usually benign voices. He seeks stabilization here against this troubling exacerbation of a chronic psychosis. We will be monitoring his mental status and safety. We will be encouraging his engagement in the therapeutic milieu and groups. We will be gathering collateral from his providers at [facility]. We will be considering with his providers whether a change of medication might be in order , although it does seem as though his report of circumstances would line up with having lost supports by transition from [facility] into independent living, so this may be the most productive change for him. Perhaps we can explore with him other living arrangements that may give him more supports. He states that when he does not have things to distract himself, the malignant psychotic experience worsens. He requests being able to use, for example his Nook reading device, which unfortunately has a camera and so we will not be able to permit this. We will try to find reading materials that may help him to stay distracted from his psychotic experience. 04.24.16 Today Mike reports worsening AH/VH with voices/visions of the more evil creatures that are part of his experience when he is not adequately occupied by, for example, reading on his nook. He agrees to take Zyprexa if these hallucinations persist and are disturbing. 04.25.[address] return call from Dr Dilshad rosas of [facility], confirmed at 400 mg q28d dosing per [facility], but with last 2 fills 16, ..16. Still wants a Nook without a camera, trying to get that through his therapist. 04.26.16 Improved mood and remission of SI. Will need placement into more stable housing at d/ to improve safety, likely [facility] respite bed. 04.27.16 Awaiting stable domiciling through [facility] to prevent re- decompensation and re-hospitalization. Compliant with meds, groups. Pleasant and collaborative. 23.16 Mike awaits placement into [facility] and will f/u with [facility] after discharge. He is pleasant and collaborative and reports stable good mood with remission of psychosis aside from benign AH. 05.01.16 Mike is pleasant and collaborative, patiently awaiting word from [facility]. Psychosis is at low baseline level. Plan - Plan Treatment Plan: Name: MIKE REID Birthdate: 1995 [id number] [facility] 400 mg to be given slightly more frequently than q28 days. Continue to make available additional Zyprexa 5 mg po q4hrs prn agitation/ psychosis, but none used so far. Monitor MS and safety. Encourage groups/ milieu. Plan for discharge back to care with [facility] after return to [facility]. May use Nook reader without functional camera. Continued Medication Management: Continue Outpt Medication Medications: Current Medications Acetaminophen (Tylenol Tab*) 650 mg PO Q4H PRN PRN Reason: PAIN or TEMP > 101 F Last Admin: 04/29/16 10:39 Dose: 650 mg Al Hydrox/Mg Hydrox/Simethicone (Maalox Plus*) 30 ml PO Q4H PRN PRN Reason: INDIGESTION Aripiprazole ([facility] Maintena (Nf)) 400 mg IM Q28D [facility] Last Admin: 04/25/16 16:37 Dose: 400 mg Multivitamins (Theragran Tab*) 1 tab PO DAILY [facility] Last Admin: 05/01/16 08:24 Dose: Not Given Nicotine (Nicotine Inhaler*) 10 mg INH Q2H PRN PRN Reason: CRAVING Olanzapine (Zyprexa * Tab Odt) 5 mg PO Q4H PRN PRN Reason: PSYCHOSIS - Discharge Plan Discharge Plan: Outpatient Follow Up Outpatient Program: [facility]
[2016-05-02] MEDS: Vitamin THERAPEUTIC TAB PO SCH (09:13)
[2016-05-03] MEDS: Vitamin THERAPEUTIC TAB PO SCH (08:55)
--- NOTE | 2016-05-03 21:26 | PN ---
Subjective - Subjective Service Type: 52167 Hosp care 15 min low complexity Subjective: Mike has been showing some signs of frustration with continued hospitalization awaiting placement into stable housing to forestall recurrent decompensation as occurred with current unstable housing situation leading to this hospitalization. He states that he slept well last night because he slept on the floor, which is cooler and more pleasant for him than sleeping in his bed. Ms Tierney has found out that he has no rep payee, so limited finances for return to community. She is working on placement. Objective - Appearance Appearance: Well Developed/Nourished Hygiene: Normal Grooming: Well Kept - Behavior Psychomotor Activities: Normal Exhibits Abnormal Movement: No - Attitude and Relatedness Attitude and Relatedness: Well Related Eye Contact: Good - Speech Quality: Unpressured Latencies: Normal Quantity: Appropriate - Mood Patient's Decription of Mood: "Okay" - Affect Observed Affect: Fair - though somewhat tense and dysphoric at times Affect Consistent with: Euthymia - Thought Process Patient's Thought Process: Coherent, Goal Directed Thought Content: No Passive Wish, No Suicidal Planning, No Homicidal Ideation, No Paranoid Ideation - Sensorium Experiencing Hallucinations: Yes Type of Hallucinations: Visual: Yes - but benign, Auditory: Yes - but benign, Command: No - Level of Consciousness Level of Consciousness: Alert Orientation: Yes Intact, Yes Orientated to Time, Yes Orientated to Place, Yes Orientated to Person - Impulse Control Impulse Control: Intact - Insight and Judgement Insight and Judgement: Fair - Group Participation Particating in Group Activities: Yes - Medication Management Medication Management Adherence: Yes Assessment - Assessment Merits Inpatient Hospitalization: For Stabilization, Consolidate Improvements, For Discharge Planning Inpatient DSM-IV Dx: Psychotic disorder, not otherwise specified. Rule out schizoaffective disorder, depressive type. Rule out schizophrenia. Also, rule out post-traumatic stress disorder with overtly psychotic experience, dissociative phenomenology. Clinical Impression: Mr. Katrina Reid is a 20-year-old male with a chronic psychotic disorder, most likely schizophrenia who reports worsened symptoms of psychosis with intrusive nightmares and with onset of malignant voices atop nearly constant background of usually benign voices. He seeks stabilization here against this troubling exacerbation of a chronic psychosis. We will be monitoring his mental status and safety. We will be encouraging his engagement in the therapeutic milieu and groups. We will be gathering collateral from his providers at [facility]. We will be considering with his providers whether a change of medication might be in order , although it does seem as though his report of circumstances would line up with having lost supports by transition from [facility] into independent living, so this may be the most productive change for him. Perhaps we can explore with him other living arrangements that may give him more supports. He states that when he does not have things to distract himself, the malignant psychotic experience worsens. He requests being able to use, for example his Nook reading device, which unfortunately has a camera and so we will not be able to permit this. We will try to find reading materials that may help him to stay distracted from his psychotic experience. 1219.16 Today Mike reports worsening AH/VH with voices/visions of the more evil creatures that are part of his experience when he is not adequately occupied by, for example, reading on his nook. He agrees to take Zyprexa if these hallucinations persist and are disturbing. .20.16 A[address] return call from Dr Dilshad rosas of [facility], confirmed at 400 mg q28d dosing per [facility], but with last 2 fills 11.10.16, 12.1.16. Still wants a Nook without a camera, trying to get that through his therapist. .21.16 Improved mood and remission of SI. Will need placement into more stable housing at / to improve safety, likely [facility] bed. .22.16 Awaiting stable domiciling through [facility] to prevent re- decompensation and re-hospitalization. Compliant with meds, groups. Pleasant and collaborative. 12.23.16 Mike awaits placement into [facility] housing and will f/u with [facility] after discharge. He is pleasant and collaborative and reports stable good mood with remission of psychosis aside from benign AH. 12.26.16 Mike is pleasant and collaborative, patiently awaiting word from [facility]. Psychosis is at low baseline level. 12.28.16 Little change in mental status: if anything, more frustrated, but tolerating wait for stable housing. No worsening of stable baseline psychosis. Plan - Plan Treatment Plan: Name: MIKE REID Birthdate: 1995 [id number] Abilify Maintenna 400 mg to be given slightly more frequently than q28 days. Continue to make available additional Zyprexa 5 mg po q4hrs prn agitation/ psychosis, but none used so far. Monitor MS and safety. Encourage groups/ milieu. Plan for discharge back to care with [facility] after return to [facility]. May use [employer] reader without functional camera. Continued Medication Management: Continue Outpt Medication Medications: Current Medications Acetaminophen (Tylenol Tab*) 650 mg PO Q4H PRN PRN Reason: PAIN or TEMP > 101 F Last Admin: 04/29/16 10:39 Dose: 650 mg Al Hydrox/Mg Hydrox/Simethicone (Maalox Plus*) 30 ml PO Q4H PRN PRN Reason: INDIGESTION Aripiprazole (Abilify Maintena (Nf)) 400 mg IM Q28D [facility] Last Admin: 04/25/16 16:37 Dose: 400 mg Multivitamins (Theragran Tab*) 1 tab PO DAILY [facility] Last Admin: 05/03/16 08:55 Dose: Not Given Nicotine (Nicotine Inhaler*) 10 mg INH Q2H PRN PRN Reason: CRAVING Olanzapine (Zyprexa * Tab Odt) 5 mg PO Q4H PRN PRN Reason: PSYCHOSIS Last Admin: 05/01/16 18:37 Dose: 5 mg - Discharge Plan Discharge Plan: Outpatient Follow Up Outpatient Program: [facility]
[2016-05-04] MEDS: Vitamin THERAPEUTIC TAB PO SCH (09:30)
[2016-05-05] MEDS: Vitamin THERAPEUTIC TAB PO SCH (08:40)
--- NOTE | 2016-05-05 14:28 | PN ---
Subjective - Subjective Service Type: 48240 Hosp care 15 min low complexity Subjective: Mike is showing some signs of frustration with his lengthy hospitalization as he awaits placement back into a supervised setting. He would like to spend all of his time here listening to music and playing videogames on his nook device, which he asked to use to be able to read. HE continues to report that voices and visions persist at a chronic benign baseline. He is concerned about the presence of another patient on the unit who has been threatening toward him in the outpatient setting. Concern was raised today by recreational therapist Heide about the negative impact of use of Nook constantly for purposes beyond reading. Mike says he finds it unacceptable to limit use of nook to 1 hour per shift. He reports that if we want him to get through the weekend alive, he must be allowed free access to his Nook. He reports that he is codendent on his electronic devices, and that it was his attempt to self-limit access to game consoles, and not moving from supported housing to living with his friend, that led to his decompensation requiring hospitalization. He says that his voices will take him over if he does not have free access to his Nook and they will compell him to create behavioral disturbances on the unit. Objective - Appearance Appearance: Obese Hygiene: Normal Grooming: Fairly Well Kept - Behavior Psychomotor Activities: Normal Exhibits Abnormal Movement: No - Attitude and Relatedness Attitude and Relatedness: Cooperative Eye Contact: Good - Speech Quality: Unpressured Latencies: Normal Quantity: Appropriate - Mood Patient's Decription of Mood: "Okay" - Affect Observed Affect: Fair Affect Consistent with: Dysphoria - mild - Thought Process Patient's Thought Process: Coherent, Goal Directed Thought Content: Yes Paranoid Ideation - on and off - unable to specify clearly about what, No Passive Wish, No Suicidal Planning, No Homicidal Ideation - Sensorium Experiencing Hallucinations: Yes Type of Hallucinations: Visual: Yes - reportedly benign, Auditory: Yes - reportedly benign, Command: No - Level of Consciousness Level of Consciousness: Alert Orientation: Yes Intact, Yes Orientated to Time, Yes Orientated to Place, Yes Orientated to Person - Impulse Control Impulse Control: Intact - Insight and Judgement Insight and Judgement: Fair - Group Participation Particating in Group Activities: Yes - Medication Management Medication Management Adherence: Yes Assessment - Assessment Merits Inpatient Hospitalization: Consolidate Improvements, For Discharge Planning, Pending Safe DC Plan Inpatient DSM-IV Dx: Psychotic disorder, not otherwise specified. Rule out schizoaffective disorder, depressive type. Rule out schizophrenia. Also, rule out post-traumatic stress disorder with overtly psychotic experience, dissociative phenomenology. Clinical Impression: Mr. Katrina Reid is a 20-year-old male with a chronic psychotic disorder, most likely schizophrenia who reports worsened symptoms of psychosis with intrusive nightmares and with onset of malignant voices atop nearly constant background of usually benign voices. He seeks stabilization here against this troubling exacerbation of a chronic psychosis. We will be monitoring his mental status and safety. We will be encouraging his engagement in the therapeutic milieu and groups. We will be gathering collateral from his providers at [facility]. We will be considering with his providers whether a change of medication might be in order , although it does seem as though his report of circumstances would line up with having lost supports by transition from [facility] into independent living, so this may be the most productive change for him. Perhaps we can explore with him other living arrangements that may give him more supports. He states that when he does not have things to distract himself, the malignant psychotic experience worsens. He requests being able to use, for example his Nook reading device, which unfortunately has a camera and so we will not be able to permit this. We will try to find reading materials that may help him to stay distracted from his psychotic experience. 16 Today Mike reports worsening AH/VH with voices/visions of the more evil creatures that are part of his experience when he is not adequately occupied by, for example, reading on his nook. He agrees to take Zyprexa if these hallucinations persist and are disturbing. [address] call from Dr Dilshad rosas of [facility], confirmed at 400 mg q28d dosing per [facility], but with last 2 fills 16, 04.06.16. Still wants a Nook without a camera, trying to get that through his therapist. 04.26.16 Improved mood and remission of SI. Will need placement into more stable housing at d/c to improve safety, likely [facility]ite bed. 16 Awaiting stable domiciling through [facility] to prevent re- decompensation and re-hospitalization. Compliant with meds, groups. Pleasant and collaborative. 04.28. Mike awaits placement into [facility] housing and will f/u with [facility] after discharge. He is pleasant and collaborative and reports stable good mood with remission of psychosis aside from benign AH. 05.01. Mike is pleasant and collaborative, patiently awaiting word from [facility]. Psychosis is at low baseline level. 05.03. Little change in mental status: if anything, more frustrated, but tolerating wait for stable housing. No worsening of stable baseline psychosis. 05.05. Mike is threatening retaliatory activity if he is not allowed free access to his Nook. He is unwilling to compromise. It has been explained to him that if he is allowed to stay out of groups using his Nook, that other patients will feel they have the right to do likewise. Plan - Plan Treatment Plan: Name: MIKE REID Birthdate: 1995 [id number] Abilify Maintenna 400 mg to be given slightly more frequently than q28 days. Continue to make available additional Zyprexa 5 mg po q4hrs prn agitation/ psychosis, but none used so far. Monitor MS and safety. Encourage groups/ milieu instead of constant use of Nook. Ordered only 1 hour per shift and not during group times. Plan for discharge back to care with [facility] after return to [facility]. May use Nook reader without functional camera at nursing discretion up to 1 hour per shift. Continued Medication Management: Continue Outpt Medication Medications: Current Medications Acetaminophen (Tylenol Tab*) 650 mg PO Q4H PRN PRN Reason: PAIN or TEMP > 101 F Last Admin: 04/29/16 10:39 Dose: 650 mg Al Hydrox/Mg Hydrox/Simethicone (Maalox Plus*) 30 ml PO Q4H PRN PRN Reason: INDIGESTION Aripiprazole (Abilify Maintena (Nf)) 400 mg IM Q28D [facility] Last Admin: 04/25/16 16:37 Dose: 400 mg Multivitamins (Theragran Tab*) 1 tab PO DAILY [facility] Last Admin: 05/05/16 08:40 Dose: Not Given Nicotine (Nicotine Inhaler*) 10 mg INH Q2H PRN PRN Reason: CRAVING Olanzapine (Zyprexa * Tab Odt) 5 mg PO Q4H PRN PRN Reason: PSYCHOSIS Last Admin: 05/01/16 18:37 Dose: 5 mg - Discharge Plan Discharge Plan: Outpatient Follow Up Outpatient Program: [facility]
[2016-05-06] MEDS: Vitamin THERAPEUTIC TAB PO SCH (08:54)
[2016-05-07] MEDS: Vitamin THERAPEUTIC TAB PO SCH (09:29)
[2016-05-08] MEDS: Vitamin THERAPEUTIC TAB PO SCH (10:18)
--- NOTE | 2016-05-08 14:47 | PN ---
Subjective - Subjective Service Type: 73608 Hosp care 15 min low complexity Subjective: Walking around on the unit wearing a self made paper hat and carrying his nook. Says he reads on the nook. Denies hallucinations or paranoia. Also denies SI/ HI. Sleeping ok on current meds. Objective - Appearance Appearance: Obese Dysmorphic Features: No Hygiene: Mal-odorous Grooming: Disheveled - Behavior Psychomotor Activities: Normal Exhibits Abnormal Movement: No - Attitude and Relatedness Attitude and Relatedness: Cooperative Eye Contact: Fair - Speech Quality: Unpressured Latencies: Normal Quantity: Appropriate - Mood Patient's Decription of Mood: "Fine" - Affect Observed Affect: Non-labile Affect Consistent with: Euthymia - Thought Process Patient's Thought Process: Coherent, Goal Directed Thought Content: No Passive Wish, No Suicidal Planning, No Homicidal Ideation, No Paranoid Ideation - Sensorium Experiencing Hallucinations: No, Sensorium is Clear Type of Hallucinations: Visual: No, Auditory: No, Command: No - Level of Consciousness Level of Consciousness: Alert Orientation: Yes Intact, Yes Orientated to Time, Yes Orientated to Place, Yes Orientated to Person - Impulse Control Impulse Control: Intact - Insight and Judgement Insight and Judgement: Fair - Group Participation Particating in Group Activities: Yes - Medication Management Medication Management Adherence: Yes Assessment - Assessment Merits Inpatient Hospitalization: Consolidate Improvements, Pending Safe DC Plan Inpatient DSM-IV Dx: Psychotic disorder, not otherwise specified. Rule out schizoaffective disorder, depressive type. Rule out schizophrenia. Also, rule out post-traumatic stress disorder with overtly psychotic experience, dissociative phenomenology. Clinical Impression: Tu with h/o Schizophrenia appears to be doing fairly well on current combination of meds and per staff reports he hasn't been an issue on the unit. Plan - Plan Treatment Plan: Name: STEPHAN REID Birthdate: 1995 [id number] Continued Medication Management: Continue Outpt Medication Medications: Current Medications Acetaminophen (Tylenol Tab*) 650 mg PO Q4H PRN PRN Reason: PAIN or TEMP > 101 F Last Admin: 04/29/16 10:39 Dose: 650 mg Al Hydrox/Mg Hydrox/Simethicone (Maalox Plus*) 30 ml PO Q4H PRN PRN Reason: INDIGESTION Aripiprazole (Abilify Maintena (Nf)) 400 mg IM Q28D [facility] Last Admin: 04/25/16 16:37 Dose: 400 mg Multivitamins (Theragran Tab*) 1 tab PO DAILY [facility] Last Admin: 05/08/16 10:18 Dose: Not Given Nicotine (Nicotine Inhaler*) 10 mg INH Q2H PRN PRN Reason: CRAVING Olanzapine (Zyprexa * Tab Odt) 5 mg PO Q4H PRN PRN Reason: PSYCHOSIS Last Admin: 05/01/16 18:37 Dose: 5 mg - Discharge Plan Discharge Plan: Outpatient Follow Up Outpatient Program: [facility]
[2016-05-09] MEDS: Vitamin THERAPEUTIC TAB PO SCH (12:21)
[2016-05-09] MEDS: Acetaminophen TAB* 325 MG PO PRN (20:34)
[2016-05-10 07:29] VITALS: BP 105/54
[2016-05-10] MEDS: Vitamin THERAPEUTIC TAB PO SCH (10:35)
--- NOTE | 2016-05-10 11:31 | PN ---
[facility]: Group Therapy Note - Service Type Service Type: 12164 Group Psychotherapy - Cognitive Behavioral Group Therapy ( CBT):Patient was attentive and participatory in CBT programming this morning, and remained in good behavioral control. Patient expressed positive insights regarding relevant treatment interventions and goals.
--- NOTE | 2016-05-10 12:01 | DS ---
Subjective - Subjective Service Types: [id number] [facility] Day Mgmt simple under 30 min Discharge Date: 05/10/16 Subjective: Mike reports being very happy that the SPOE meeting yesterday resulted in a respite bed available at [facility], with plan to transfer from there back to a [facility] program. As throughout most of this hospitalization, he reports only benign, chronic baseline AH/VH. He has no other psychiatric of physical complaints. Objective - Appearance Appearance: Well Developed/Nourished, Healthy Appearing, Obese Dysmorphic Features: No Hygiene: Normal Grooming: Fairly Well Kept - Behavior Psychomotor Activities: Normal - Attitude and Relatedness Attitude and Relatedness: Cooperative Eye Contact: Good - Speech Quality: Unpressured Latencies: Normal Quantity: Appropriate - Mood Patient's Decription of Mood: "Okay" - Affect Observed Affect: Good Affect Consistent with: Euthymia - Thought Process Patient's Thought Process: Coherent, Goal Directed Thought Content: No Passive Wish, No Suicidal Planning, No Homicidal Ideation, No Paranoid Ideation - Sensorium Type of Hallucinations: Visual: Yes - but chronic, benign, Auditory: Yes - but chronic, benign, Command: No - Level of Consciousness Level of Consciousness: Alert Orientation: Yes Intact, Yes Orientated to Time, Yes Orientated to Place, Yes Orientated to Person - Impulse Control Impulse Control: Intact - Insight and Judgement Insight and Judgement: Fair - Group Participation Particating in Group Activities: Yes Group Participation Comments: A few, declines most - Medication Management Medication Management Adherence: Yes Treatment Course & Assessment Clinical Course & Impression: Mr. Katrina Cook is a 20-year-old male with a chronic psychotic disorder, most likely schizophrenia who reports worsened symptoms of psychosis with intrusive nightmares and with onset of malignant voices atop nearly constant background of usually benign voices. He seeks stabilization here against this troubling exacerbation of a chronic psychosis. We will be monitoring his mental status and safety. We will be encouraging his engagement in the therapeutic milieu and groups. We will be gathering collateral from his providers at [facility]. We will be considering with his providers whether a change of medication might be in order , although it does seem as though his report of circumstances would line up with having lost supports by transition from [facility] into independent living, so this may be the most productive change for him. Perhaps we can explore with him other living arrangements that may give him more supports. He states that when he does not have things to distract himself, the malignant psychotic experience worsens. He requests being able to use, for example his Nook reading device, which unfortunately has a camera and so we will not be able to permit this. We will try to find reading materials that may help him to stay distracted from his psychotic experience. 12.19.16 Today Mike reports worsening AH/VH with voices/visions of the more evil creatures that are part of his experience when he is not adequately occupied by, for example, reading on his nook. He agrees to take Zyprexa if these hallucinations persist and are disturbing. 12.20.[address] return call from Dr Dilshad rosas of [facility], confirmed at 400 mg q28d dosing per [facility], but with last 2 fills 1116, 12.1.16. Still wants a Nook without a camera, trying to get that through his therapist. .21.16 Improved mood and remission of SI. Will need placement into more stable housing at / to improve safety, likely [facility] respite bed. .22.16 Awaiting stable domiciling through [facility] to prevent re- decompensation and re-hospitalization. Compliant with meds, groups. Pleasant and collaborative. .23.16 Mike awaits placement into [facility] housing and will f/u with [facility] after discharge. He is pleasant and collaborative and reports stable good mood with remission of psychosis aside from benign AH. 12.26.16 Mike is pleasant and collaborative, patiently awaiting word from [facility]. Psychosis is at low baseline level. 12.28.16 Little change in mental status: if anything, more frustrated, but tolerating wait for stable housing. No worsening of stable baseline psychosis. 12.30.16 Mike is threatening retaliatory activity if he is not allowed free access to his Nook. He is unwilling to compromise. It has been explained to him that if he is allowed to stay out of groups using his Nook, that other patients will feel they have the right to do likewise. 1.4.17 SPOE meeting opened stable placement option with respite bed through [facility] while awaiting reentry into [facility]. With stable disposition now available, Mike is cleared for discharge today. He is assessed as at no acutely increased risk of harm to self or others and as capable of adequate self -care to avoid harm in the structured setting to which he is discharging. He remains at elevated chronic risk due to chronic psychotic illness. He can reduce the risks from his mental illness by complying with outpatient psychiatric services and community care for housing and day structure. He has had no dangerous intent or plan throughout this hospitalization, only at one point threatening agitation out of frustration over the wait for stable disposition, but he never carried out his threat. Overall, quite pleasant young man to provide care to. Merits Inpatient Hospitalization: No Clear for Discharge: Low Utility of Inpt Care Inpatient DSM-IV Dx: Psychotic disorder, not otherwise specified. Rule out schizoaffective disorder, depressive type. Rule out schizophrenia. Also, rule out post-traumatic stress disorder with overtly psychotic experience, dissociative phenomenology. - [place] III Medical Illness: obesity - [place] IV Stressors: unstable housing Family: mother is supportive Primary Support Group: mother, [facility] - [place] V RYS-Tkfrfo-Pchdu: 65 Estimate of Highest-Past Year: 65 Discharge Planning - Discharge Planning Discharge Plan: Outpatient Follow Up Outpatient Program: [facility] Recommendations for Continuing Care: Medication Management, Psychotherapy Medications: Aripiprazole (Ravi Maintena (Nf)) 400 mg IM Q28D JOANN Last Admin: 04/25/16 16:37 Dose: 400 mg Last dose admininstered 04.25.16, recommend to give next dose early on 05.18.16 ( 23 days) as he reports he has been having increased psychotic symptoms in final week of current 28 day interval. Discharge Planning: Prescriptions provided for discharge [] Yes [x] No : will get next Maintenna dose at [facility] Follow up care details as per social work arrangements. Patient response to discharge plan: [x] eager for discharge [x] agreeable with discharge plan [] ambivalent about discharge [] disagrees with discharge today
== END 2016-05-10 14:30 | DRG 885 ==
LOC: ED 10:33 → BSU 18:23
PROVIDERS: ADMIT Psychiatry & Neurology Psychiatry; ATTEND Psychiatry & Neurology Psychiatry
DX: F29 Unspecified psychosis not due to a substance or known physiological condition (principal); F20.9 Schizophrenia, unspecified; E66.9 Obesity, unspecified; Z68.37 Body mass index [BMI] 37.0-37.9, adult; Z81.8 Family history of other mental and behavioral disorders
CPT/HCPCS: 36415; 80053; 80301; 80320; 80329; 81003; 84443; 85025; 87491; 87591; 90853; 99222; 99231; 99238; A9270-GY; G0479; G0480

== ENCOUNTER 2016-09-05 13:50 | Emergency (ER) | payer MEDICARE, MEDICAID ==
[2016-09-05 14:28] LABS: Hematocrit 51 % (42-52); Mean Corpuscular HGB Conc 34 g/dl (31-36); Mean Corpuscular Hemoglobin 27 pg (27-31); Mean Corpuscular Volume 79 fL (80-94); Mean Platelet Volume 8 um3 (7.4-10.4); Red Blood Count 6.39 10^6/ul (4.0-5.4); Red Cell Distribution Width 14 % (10.5-15); White Blood Count 5.9 10^3/ul (3.5-10.8)
[2016-09-05 14:42] LABS: ALT 33 U/L (7-52); AST 25 U/L (13-39); Albumin 4.9 g/dL (3.2-5.2); Alkaline Phosphatase 46 U/L (34-104); Anion Gap 6 mmol/L (2-11); Blood Urea Nitrogen 12 mg/dL (6-24); CO2 Carbon Dioxide 26 mmol/L (22-32); Calcium 10.1 mg/dL (8.6-10.3); Chloride 106 mmol/L (101-111); EGFR African American 97.4 (>60); EGFR Non-African American 75.7 (>60); Globulin 2.8 g/dL (2-4); Glucose 83 mg/dL (70-100); Potassium 4.1 mmol/L (3.5-5.0); Sodium 138 mmol/L (133-145); Total Protein 7.7 g/dL (6.4-8.9)
[2016-09-05 15:02] LABS: Acetaminophen < 15 mcg/mL; Alcohol < 10 mg/dL (<10); Salicylate < 2.50 mg/dL (<30)
[2016-09-05 15:10] LABS: TSH (Thyroid Stimulating Horm) 2.58 mcIU/mL (0.34-5.60)
--- NOTE | 2016-09-05 15:54 | ED ---
Maurice Glaser Billy, scribed for Shell Brennan MD on 09/05/16 at 1535 . Psychiatric Complaint - HPI Summary HPI Summary: Patient is a 20 year-old male with an extensive psychiatric history including depression and psychosis [facility]. Pt reports for three months of progessive, ongoing, progressive depression. He states he feels lonely at the [facility], where he lives, which is contributing to his depression. He states that he normally sees Denisse Louis for his monthly. pt gets Abilify injections (last injection last week) . Pt sates walked into clinic today requesting help and was sent to ED for same. He reports both visual and auditory hallucinations which are ongoing. He denies any SI/HI at this time, but he states he had a suicide attempt 2.5 years ago via overdose. Pt in not on oral medicaitons. Denied etoh, illicit substance All medications were reviewed this visit. - History Of Current Complaint Chief Complaint: EDMentalHealth Time Seen by Provider: 09/05/16 14:19 Hx Obtained From: Patient Onset/Duration: Gradual Onset, Lasting Weeks, Still Present Timing: Constant Severity Initially: Moderate Severity Currently: Moderate Character: Depressed Aggravating Factor(s): Recent Stress Alleviating Factor(s): Nothing Associated Signs And Symptoms: Positive: Hallucinating Related History: Positive For: Prior Psychiatric Issues Has Suicidal: Reports: Has Prior Attempt(s). Denies: Thoughts, With A Plan Has Homicidal: Denies: Thoughts, With A Plan - Allergies/Home Medications Allergies/Adverse Reactions: Allergies Allergy/AdvReac Type Severity Reaction Status Date / Time Amoxicillin Allergy Unknown Hives Verified 09/05/16 14:17 PMH/Surg Hx/FS Hx/Imm Hx Previously Healthy: Yes Cardiovascular History: Reports: Hx Hypercholesterolemia Sensory History: Reports: Hx Contacts or Glasses Opthamlomology History: Reports: Hx Contacts or Glasses Psychiatric History: Reports: Hx Anxiety, Hx Depression, Hx Post Traumatic Stress Disorder, Hx Inpatient Treatment, Hx Community Mental Health Tx, Hx Schizophrenia, Hx Bipolar Disorder, Hx Suicide Attempt - History of OD 2 years ago and "trying to jump off something" Denies: Hx Eating Disorder, Hx of Violent Episodes Against Others - unable to confirm, Hx Substance Abuse Infectious Disease History: No Infectious Disease History: Denies: Traveled Outside the [place] in Last 30 Days - Family History Known Family History: Positive: Other - Uncle with bladder cancer. Negative: Cardiac Disease, Hypertension, Diabetes - Social History Occupation: Unemployed Lives: Alone Alcohol Use: None Hx Substance Use: No Substance Use Type: Reports: None Hx Tobacco Use: No Smoking Status (MU): Never Smoked Tobacco Review of Systems Constitutional: Negative Eyes: Negative ENT: Negative Cardiovascular: Negative Respiratory: Negative Gastrointestinal: Negative Genitourinary: Negative Musculoskeletal: Negative Skin: Negative Neurological: Negative Psychological: Other - visual and auditory hallucinations no current SI/HI Positive: Depressed All Other Systems Reviewed And Are Negative: Yes Physical Exam Triage Information Reviewed: Yes Vital Signs On Initial Exam: Initial Vitals Temp Pulse Resp BP Pulse Ox 98.6 F 75 16 123/73 96 09/05/16 14:18 09/05/16 14:18 09/05/16 14:18 09/05/16 14:18 09/05/16 14:18 Vital Signs Reviewed: Yes Appearance: Positive: Well-Appearing - unkempt, appropriate, no distress, No Pain Distress, Well-Nourished Skin: Positive: Warm, Skin Color Reflects Adequate Perfusion, Dry Head/Face: Positive: Normal Head/Face Inspection Eyes: Positive: Conjunctiva Clear ENT: Positive: Hearing grossly normal Neck: Positive: Supple, Nontender, No Lymphadenopathy Respiratory/Lung Sounds: Positive: Clear to Auscultation, Breath Sounds Present. Negative: Wheezes Cardiovascular: Positive: Normal, RRR. Negative: Murmur Abdomen Description: Positive: Nontender, No Organomegaly, Soft Bowel Sounds: Positive: Present Musculoskeletal: Negative: Edema Left, Edema Right Neurological: Positive: Normal, Sensory/Motor Intact, Alert, Oriented to Person Place, Time. Negative: Slurred Speech Psychiatric: Positive: Normal, Affect/Mood Appropriate AVPU Assessment: Alert - [place] Coma Scale Best Eye Response: 4 - Spontaneous Best Motor Response: 6 - Obeys Commands Best Verbal Response: 5 - Oriented Coma Scale Total: 15 Diagnostics - Vital Signs Vital Signs Temp Pulse Resp BP Pulse Ox 09/05/16 14:18 98.6 F 75 16 123/73 96 - Laboratory Lab Results: Lab Results 09/05/16 09/05/16 Range/Units 14:18 14:18 WBC 5.9 (3.5-10.8) 10^3/ul RBC 6.39 H (4.0-5.4) 10^6/ul Hgb 17.0 (14.0-18.0) g/dl Hct 51 (42-52) % MCV 79 L (80-94) fL MCH 27 (27-31) pg MCHC 34 (31-36) g/dl RDW 14 (10.5-15) % Plt Count 222 (150-450) 10^3/ul MPV 8 (7.4-10.4) um3 Neut % (Auto) 50.2 (38-83) % Lymph % (Auto) 41.8 (25-47) % [place] % (Auto) 5.9 (1-9) % Eos % (Auto) 1.4 (0-6) % Baso % (Auto) 0.7 (0-2) % Absolute Neuts (auto) 2.9 (1.5-7.7) 10^3/ul Absolute Lymphs (auto) 2.5 (1.0-4.8) 10^3/ul Absolute Monos (auto) 0.3 (0-0.8) 10^3/ul Absolute Eos (auto) 0.1 (0-0.6) 10^3/ul Absolute Basos (auto) 0 (0-0.2) 10^3/ul Absolute Nucleated RBC 0.05 10^3/ul Nucleated RBC % 0.8 Sodium 138 (133-145) mmol/L Potassium 4.1 (3.5-5.0) mmol/L Chloride 106 (101-111) mmol/L Carbon Dioxide 26 (22-32) mmol/L Anion Gap 6 (2-11) mmol/L BUN 12 (6-24) mg/dL Creatinine 1.20 H (0.67-1.17) mg/dL Est GFR ( Amer) 97.4 (>60) Est GFR (Non-Af Amer) 75.7 (>60) BUN/Creatinine Ratio 10.0 (8-20) Glucose 83 (70-100) mg/dL Calcium 10.1 (8.6-10.3) mg/dL Total Bilirubin 0.80 (0.2-1.0) mg/dL AST 25 (13-39) U/L ALT 33 (7-52) U/L Alkaline Phosphatase 46 (34-104) U/L Total Protein 7.7 (6.4-8.9) g/dL Albumin 4.9 (3.2-5.2) g/dL Globulin 2.8 (2-4) g/dL Albumin/Globulin Ratio 1.8 (1-3) TSH 2.58 (0.34-5.60) mcIU/mL Salicylates < 2.50 (<30) mg/dL Acetaminophen < 15 mcg/mL Serum Alcohol < 10 (<10) mg/dL Result Diagrams: 09/05/16 14:18 09/05/16 14:18 Lab Statement: Any lab studies that have been ordered have been reviewed, and results considered in the medical decision making process. Course/Dx - Course Assessment/Plan: Pt sent to ED by oupt mental health provider with report of increased depression, fatigue and ongoing hallucinations. Pt denies substance use. Denies SI/HI at present. Last hospitalizaiton 5 months ago per pt. Will check labs and request mental health eval. Pt okay for flex pending labs - Differential Dx/Clinical Impression Provider Diagnosis: History of depression, Schizophrenia - Physician Notifications Discussed Care Of Patient With: Mental health unit- requesit eval 3103 Discharge - Discharge Plan Condition: Improved Disposition: HOME Patient Education Materials: Depression (ED), Schizophrenia (ED) Referrals: No Primary Care Phys,NOPCP [Primary Care Provider] - The documentation as recorded by the Maurice ross Billy accurately reflects the service I personally performed and the decisions made by me, Shell Brennan MD.
[2016-09-05 15:58] VITALS: BP 126/72
== END 2016-09-05 18:30 | disposition home or self-care (01) ==
LOC: ED 13:50
DX: F20.9 Schizophrenia, unspecified (principal); F32.9 Major depressive disorder, single episode, unspecified
CPT/HCPCS: 36415; 80053; 80320; 80329; 84443; 85025; 99284; G0480

== ENCOUNTER 2017-02-06 16:08 | Inpatient (IN) | payer MEDICAID, MEDICARE ==
[2017-02-06 16:50] LABS: Hematocrit 47 % (42-52); Hemoglobin 16.1 g/dl (14.0-18.0); Mean Corpuscular HGB Conc 35 g/dl (31-36); Mean Corpuscular Hemoglobin 28 pg (27-31); Mean Corpuscular Volume 81 fL (80-94); Mean Platelet Volume 7 um3 (7.4-10.4); Red Blood Count 5.75 10^6/ul (4.0-5.4); Red Cell Distribution Width 14 % (10.5-15); White Blood Count 7.5 10^3/ul (3.5-10.8)
[2017-02-06 17:07] LABS: ALT 19 U/L (7-52); Albumin 4.5 g/dL (3.2-5.2); Alkaline Phosphatase 50 U/L (34-104); BUN/Creatinine Ratio 12.7 (8-20); Blood Urea Nitrogen 15 mg/dL (6-24); CO2 Carbon Dioxide 25 mmol/L (22-32); Calcium 9.7 mg/dL (8.6-10.3); Chloride 108 mmol/L (101-111); EGFR African American 98.4 (>60); EGFR Non-African American 76.5 (>60); Globulin 2.6 g/dL (2-4); Glucose 115 mg/dL (70-100); Sodium 140 mmol/L (133-145); Total Protein 7.1 g/dL (6.4-8.9)
[2017-02-06 17:17] LABS: Anion Gap 7 mmol/L (2-11)
[2017-02-06 17:27] LABS: Acetaminophen < 15 mcg/mL; Alcohol < 10 mg/dL (<10); Salicylate < 2.50 mg/dL (<30)
[2017-02-06 17:52] LABS: TSH (Thyroid Stimulating Horm) 2.48 mcIU/mL (0.34-5.60)
[2017-02-06 18:23] LABS: Urine Bacteria Absent (Absent); Urine Bilirubin Negative (Negative); Urine Glucose Negative (Negative); Urine Nitrite Negative (Negative)
--- NOTE | 2017-02-06 18:33 | ED ---
Oz Glaser Angela, scribed for Artem Pan MD on 02/06/17 at 1626 . Psychiatric Complaint - HPI Summary HPI Summary: This pt is a 21 y/o male BIBA from therapist's office ([facility]) [facility] c/o SI thoughts and depression. He additionally c/o having auditory hallucinations telling him to harm himself. Pt reports he has had depression for about 1 month, worsening now. Pt denies any SI plans. Pt doesn't take any medications. He denies any tobacco, drug, or alcohol use. Allergies: amoxicillin. PMHx: schizophrenia. - History Of Current Complaint Time Seen by Provider: 02/06/17 16:17 Hx Obtained From: Patient Onset/Duration: Lasting Weeks Timing: Weeks Character: Depressed Associated Signs And Symptoms: Positive: Hallucinating - auditory Has Suicidal: Reports: Thoughts. Denies: With A Plan - Allergies/Home Medications Allergies/Adverse Reactions: Allergies Allergy/AdvReac Type Severity Reaction Status Date / Time Amoxicillin Allergy Unknown Hives Verified 09/05/16 14:17 PMH/Surg Hx/FS Hx/Imm Hx Endocrine/Hematology History: Denies: Hx Diabetes Cardiovascular History: Reports: Hx Hypercholesterolemia Sensory History: Reports: Hx Contacts or Glasses Opthamlomology History: Reports: Hx Contacts or Glasses Psychiatric History: Reports: Hx Anxiety, Hx Depression, Hx Post Traumatic Stress Disorder, Hx Inpatient Treatment, Hx Community Mental Health Tx, Hx Schizophrenia, Hx Bipolar Disorder, Hx Suicide Attempt - History of OD 2 years ago and "trying to jump off something" Denies: Hx Eating Disorder, Hx of Violent Episodes Against Others - unable to confirm, Hx Substance Abuse - Family History Known Family History: Positive: Other - Uncle with bladder cancer. Depression. Negative: Cardiac Disease, Hypertension, Diabetes Family History: pt denies a significant FHx - Social History Alcohol Use: None Hx Substance Use: No Substance Use Type: Reports: None Hx Tobacco Use: No Smoking Status (MU): Never Smoked Tobacco Review of Systems Negative: Fever, Chills Eyes: Negative ENT: Negative Cardiovascular: Negative Respiratory: Negative Gastrointestinal: Negative Psychological: Other - SI thoughts, auditory hallucinations Positive: Depressed. Negative: Other - SI plan All Other Systems Reviewed And Are Negative: Yes Physical Exam Triage Information Reviewed: Yes Vital Signs On Initial Exam: Initial Vitals Temp Pulse Resp BP Pulse Ox 99 F 105 15 115/65 96 02/06/17 17:04 02/06/17 17:04 02/06/17 17:04 02/06/17 17:04 02/06/17 17:04 Vital Signs Reviewed: Yes Appearance: Positive: Well-Appearing, No Pain Distress Skin: Positive: Warm, Skin Color Reflects Adequate Perfusion Head/Face: Positive: Normal Head/Face Inspection Eyes: Positive: EOMI ENT: Positive: Normal ENT inspection Neck: Positive: Supple, Nontender Respiratory/Lung Sounds: Positive: Clear to Auscultation, Breath Sounds Present Cardiovascular: Positive: RRR. Negative: Murmur Abdomen Description: Positive: Nontender Musculoskeletal: Positive: Normal, Strength/ROM Intact Neurological: Positive: Sensory/Motor Intact, Alert, Oriented to Person Place, Time, CN Intact II-III Psychiatric: Positive: Normal - [place] Coma Scale Best Eye Response: 4 - Spontaneous Best Motor Response: 6 - Obeys Commands Best Verbal Response: 5 - Oriented Diagnostics - Vital Signs Vital Signs Temp Pulse Resp BP Pulse Ox 02/06/17 17:04 99 F 105 15 115/65 96 - Laboratory Lab Results: Lab Results 02/06/17 02/06/17 Range/Units 16:42 16:42 WBC 7.5 (3.5-10.8) 10^3/ul RBC 5.75 H (4.0-5.4) 10^6/ul Hgb 16.1 (14.0-18.0) g/dl Hct 47 (42-52) % MCV 81 (80-94) fL MCH 28 (27-31) pg MCHC 35 (31-36) g/dl RDW 14 (10.5-15) % Plt Count 257 (150-450) 10^3/ul MPV 7 L (7.4-10.4) um3 Neut % (Auto) 59.4 (38-83) % Lymph % (Auto) 31.7 (25-47) % [place] % (Auto) 6.3 (1-9) % Eos % (Auto) 1.9 (0-6) % Baso % (Auto) 0.7 (0-2) % Absolute Neuts (auto) 4.5 (1.5-7.7) 10^3/ul Absolute Lymphs (auto) 2.4 (1.0-4.8) 10^3/ul Absolute Monos (auto) 0.5 (0-0.8) 10^3/ul Absolute Eos (auto) 0.1 (0-0.6) 10^3/ul Absolute Basos (auto) 0.1 (0-0.2) 10^3/ul Absolute Nucleated RBC 0.01 10^3/ul Nucleated RBC % 0.1 Sodium 140 (133-145) mmol/L Potassium TNP Chloride 108 (101-111) mmol/L Carbon Dioxide 25 (22-32) mmol/L Anion Gap 7 (2-11) mmol/L BUN 15 (6-24) mg/dL Creatinine 1.18 H (0.67-1.17) mg/dL Est GFR ( Amer) 98.4 (>60) Est GFR (Non-Af Amer) 76.5 (>60) BUN/Creatinine Ratio 12.7 (8-20) Glucose 115 H (70-100) mg/dL Calcium 9.7 (8.6-10.3) mg/dL Total Bilirubin 0.50 (0.2-1.0) mg/dL AST TNP ALT 19 (7-52) U/L Alkaline Phosphatase 50 (34-104) U/L Total Protein 7.1 (6.4-8.9) g/dL Albumin 4.5 (3.2-5.2) g/dL Globulin 2.6 (2-4) g/dL Albumin/Globulin Ratio 1.7 (1-3) TSH Pending Salicylates < 2.50 (<30) mg/dL Acetaminophen < 15 mcg/mL Serum Alcohol < 10 (<10) mg/dL Result Diagrams: 02/06/17 16:42 02/06/17 17:20 Lab Statement: Any lab studies that have been ordered have been reviewed, and results considered in the medical decision making process. Course/Dx - Course Course Of Treatment: 21 yr old male with depression and SI. Psych eval pending - Differential Dx/Clinical Impression Provider Diagnosis: Depression, Suicidal ideation Discharge - Discharge Plan Condition: Good Disposition: OTHER Discharge Disposition Comment: sign out Dr Jaramillo with psych eval pending and dispo 1900 Referrals: No Primary Care Phys,NOPCP [Primary Care Provider] - The documentation as recorded by the Oz ross Angela accurately reflects the service I personally performed and the decisions made by me, Artem Pan MD.
[2017-02-06 18:35] LABS: Benzodiazepine Urine Screen None Detected (None Detect)
[2017-02-06] MEDS ORDERED: Al Hydrox/Mg Hydrox/Simet LIQ* 30 ML UDC PO PRN (22:45)
[2017-02-06] MEDS ORDERED: Acetaminophen TAB* 325 MG PO PRN (22:45)
--- NOTE | 2017-02-07 02:08 | ED ---
Prachi Glaser Alfonso, scribed for Reina Jaramillo MD on 02/06/17 at 2200 . Progress - Progress Note Progress Note: This patient was signed out from Dr. Pan, pending disposition, awaiting MHE. After the MHE the patient's condition is deemed stable by Dr. Walker ( psychiatrist) and the patient will be admitted voluntarily to [facility] with Dx of SI. - Consult/PCP Time Called: 19:40 Course/Dx - Diagnoses Provider Diagnoses: Suicidal ideation The documentation as recorded by the Prachi ross Alfonso accurately reflects the service I personally performed and the decisions made by Clint claros Barbara J, MD.
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
--- NOTE | 2017-02-07 11:05 | PN ---
MHU: Group Therapy Note - Service Type Service Type: [id number] Group Psychotherapy - Cognitive Behavioral Group Therapy ( CBT):Patient was attentive and participatory in CBT programming this morning, and remained in good behavioral control. Patient expressed positive insights regarding relevant treatment interventions and goals.
[2017-02-07] MEDS: Vitamin THERAPEUTIC TAB PO SCH (14:20)
[2017-02-08 07:38] LABS: HDL Cholesterol 27.6 mg/dL
--- NOTE | 2017-02-08 10:10 | PN ---
Subjective - Subjective Service Type: 93765 Hosp care 15 min low complexity Subjective: Patient noted to be isolated in his room most of the day. Patient is calm, cooperative, and engages the interview. Patient reports ongoing poor sleep last night. He reports not recalling if Seroquel helped his insomnia. He directed this provider to call his mother who would know. Patient reports ongoing AHs of male and female voices which are loud and distressing. He reports they are no longer commanding, but they are making derogatory statements towards him. He denies SI, but reports ongoing depressive symptoms. Appetite is wnl. Per conversation with patient's mom, aSda#[phone], patient has had multiple med trials for his insomnia, mood and psychosis. She reports he has had Seroquel but can not recall if it was beneficial. Mom reports patient benefitted on Wellbutrin for mood and she is amenable to a retrial. Mom reports patient has not had oral meds since his OD in 2013 that led to an ICU admission. She reports she has talked to patient about holding his meds and giving him a 1 week pill box filled each Sunday. Objective - Appearance Appearance: Well Developed/Nourished Dysmorphic Features: No Hygiene: Normal Grooming: Fairly Well Kept - Behavior Psychomotor Activities: Normal Exhibits Abnormal Movement: No - Attitude and Relatedness Attitude and Relatedness: Cooperative Eye Contact: Fair - Speech Quality: Unpressured Latencies: Normal Quantity: Terse - Mood Patient's Decription of Mood: "depressed" - Affect Observed Affect: Depressed Affect Consistent with: Dysphoria - Thought Process Patient's Thought Process: Coherent Thought Content: No Passive Wish, No Suicidal Planning, No Homicidal Ideation, No Paranoid Ideation - Sensorium Experiencing Hallucinations: Yes Type of Hallucinations: Visual: No, Auditory: Yes, Command: Yes - Level of Consciousness Level of Consciousness: Alert Orientation: Yes Intact, Yes Orientated to Time, Yes Orientated to Place, Yes Orientated to Person - Impulse Control Impulse Control: Intact - Insight and Judgement Insight and Judgement: Fair - Group Participation Particating in Group Activities: Yes - Medication Management Medication Management Adherence: Yes Assessment - Assessment Merits Inpatient Hospitalization: For Immediate Safety, For Stabilization Inpatient DSM-IV Dx: 1. Schizoaffective d/o, Depressed type, severe Plan - Plan Treatment Plan: Name: STEPHAN REID Birthdate: 1995 [id number] PLAN: ------ 1. Continue admission to [facility] for safety and symptom mx. 2. Patient is currently on Abilify Maintena, last injection on 01/24/17 at [facility]. Next due on 02/21/17. 4. Patient agreeable to start Seroquel 150mg po qhs for insomnia. 5. Patient also agreeable to starting Wellbutrin 100mg po BID(7am and 2pm) for depressive symptoms. 6. Called patient's outpt psychiatrist Dr. Yung regarding her thoughts on antidepressant vs augmenting SGA or mood stabilizer. Left VM, awaiting call back. 7. Collateral information obtained from patient's mom, Sada#[phone]. 8. Patient to participate in milieu activities and groups. Continued Medication Management: Different Medication Medications: Current Medications Acetaminophen (Tylenol Tab*) 650 mg PO Q4H PRN PRN Reason: PAIN or TEMP > 101 F Al Hydrox/Mg Hydrox/Simethicone (Maalox Plus*) 30 ml PO Q4H PRN PRN Reason: INDIGESTION Multivitamins (Theragran Tab*) 1 tab PO DAILY [facility] Last Admin: 02/07/17 14:20 Dose: Not Given - Discharge Plan Discharge Plan: Outpatient Follow Up Outpatient Program: [facility]
[2017-02-08] MEDS: Vitamin THERAPEUTIC TAB PO SCH (10:28)
[2017-02-08] MEDS: buPROPion SR TAB.SR* 100 MG PO SCH (14:58)
[2017-02-08] MEDS: QUEtiapine TAB* 100 MG PO SCH (21:04)
[2017-02-09] MEDS: Vitamin THERAPEUTIC TAB PO SCH (08:31)
[2017-02-09] MEDS: buPROPion SR TAB.SR* 100 MG PO SCH ×2 (08:31→13:58)
--- NOTE | 2017-02-09 12:12 | PN ---
Subjective - Subjective Service Type: 30323 Hosp care 15 min low complexity Subjective: Patient more visible in the milieu today. Patient's affect is note to be brighter. Patient is is calm, cooperative, and engages the interview. Patient reports improved sleep last night on Seroquel 150mg po qhs. He has also been compliant on Bupropion 100mg po BID with reported benefit to his mood and energy level. Patient reports ongoing AHs today, but reports they are less intense and are not distressing. Patient reports he never has a day w/o voices. Today he hears the voices that say positive things about him. He denies AHs making derogatory comments or those that command him to hurt himself. Patient reports appetite is wnl. He denies SI/HI and VH. Objective - Appearance Appearance: Well Developed/Nourished Dysmorphic Features: No Hygiene: Normal Grooming: Fairly Well Kept - Behavior Psychomotor Activities: Normal Exhibits Abnormal Movement: No - Attitude and Relatedness Attitude and Relatedness: Cooperative Eye Contact: Fair - Speech Quality: Unpressured Latencies: Normal Quantity: Appropriate - Mood Patient's Decription of Mood: "better" - Affect Observed Affect: Fair Affect Consistent with: Euthymia - Thought Process Patient's Thought Process: Coherent Thought Content: No Passive Wish, No Suicidal Planning, No Homicidal Ideation, No Paranoid Ideation - Sensorium Experiencing Hallucinations: Yes Type of Hallucinations: Visual: No, Auditory: Yes, Command: No - Level of Consciousness Level of Consciousness: Alert Orientation: Yes Intact, Yes Orientated to Time, Yes Orientated to Place, Yes Orientated to Person - Impulse Control Impulse Control: Intact - Insight and Judgement Insight and Judgement: Fair - Group Participation Particating in Group Activities: Yes - Medication Management Medication Management Adherence: Yes Assessment - Assessment Merits Inpatient Hospitalization: For Immediate Safety, For Stabilization Inpatient DSM-IV Dx: 1. Schizoaffective d/o, Depressed type, severe Plan - Plan Treatment Plan: Name: STEPHAN REID Birthdate: 1995 [id number] PLAN: ------ 1. Continue admission to [facility] for safety and symptom mx. 2. Patient is currently on Abilify Maintena, last injection on 01/24/17 at [facility]. Next due on 02/21/17. 4. Continue Seroquel 150mg po qhs for insomnia. 5. Continue Wellbutrin 100mg po BID(7am and 2pm) for depressive symptoms. 6. Called patient's outpt psychiatrist Dr. Yung regarding her thoughts on antidepressant vs augmenting SGA or mood stabilizer. Left VM, awaiting call back. 7. Collateral information obtained from patient's mom, Sada#[phone]. 8. Patient to participate in milieu activities and groups. Continued Medication Management: Different Medication Medications: Current Medications Acetaminophen (Tylenol Tab*) 650 mg PO Q4H PRN PRN Reason: PAIN or TEMP > 101 F Al Hydrox/Mg Hydrox/Simethicone (Maalox Plus*) 30 ml PO Q4H PRN PRN Reason: INDIGESTION Bupropion HCl (Wellbutrin Sr Tab*) 100 mg PO 0700,1400 [facility] Last Admin: 02/09/17 08:31 Dose: 100 mg Multivitamins (Theragran Tab*) 1 tab PO DAILY [facility] Last Admin: 02/09/17 08:31 Dose: 1 tab Quetiapine Fumarate (Seroquel Tab*) 150 mg PO BEDTIME [facility] Last Admin: 02/08/17 21:04 Dose: 150 mg - Discharge Plan Discharge Plan: Outpatient [facility]
--- NOTE | 2017-02-09 14:34 | PN ---
MHU: Group Therapy Note - Service Type Service Type: [id number] Group Psychotherapy - Cognitive Behavioral Group Therapy ( CBT):Patient was attentive and participatory in CBT programming this morning, and remained in good behavioral control. Patient expressed positive insights regarding relevant treatment interventions and goals.
[2017-02-09] MEDS: QUEtiapine TAB* 100 MG PO SCH (21:08)
[2017-02-10] MEDS: Vitamin THERAPEUTIC TAB PO SCH (08:02)
[2017-02-10] MEDS: buPROPion SR TAB.SR* 100 MG PO SCH ×2 (08:02→13:53)
--- NOTE | 2017-02-10 16:34 | PN ---
<Alecia Alston - Last Filed: 02/10/17 16:54> Subjective - Subjective Service Type: [id number] Hosp care 15 min low complexity Subjective: Tu was found in milieu making his own board game. He delighted in explaining how it is played, with the goal being score higher than "the boss". Denies suicidal ideation, no thoughts of self-harm. Endorses AH, "it's the good voices", and they are "being quite" right now. He is pleasant on approach. States he slept well and has no side effects from the Buproprion and was able to tell me it was started 2 days ago. Objective - Appearance Appearance: Obese Dysmorphic Features: No Hygiene: Normal Grooming: Disheveled - Behavior Psychomotor Activities: Normal Exhibits Abnormal Movement: No - Attitude and Relatedness Attitude and Relatedness: Cooperative Eye Contact: Fair - Speech Quality: Unpressured Latencies: Normal Quantity: Appropriate - Mood Patient's Decription of Mood: "Okay" - Affect Observed Affect: Fair Affect Consistent with: Euthymia - Thought Process Patient's Thought Process: Coherent, Goal Directed Thought Content: No Passive Wish, No Suicidal Planning, No Homicidal Ideation, No Paranoid Ideation - Sensorium Experiencing Hallucinations: Yes Type of Hallucinations: Visual: No, Auditory: Yes - "my good voices" states they were quite during interview, Command: No - Level of Consciousness Level of Consciousness: Alert Orientation: Yes Intact, Yes Orientated to Time, Yes Orientated to Place, Yes Orientated to Person - Impulse Control Impulse Control: Intact - Insight and Judgement Insight and Judgement: Fair - Group Participation Particating in Group Activities: Yes - Medication Management Medication Management Adherence: Yes Assessment - Assessment Merits Inpatient Hospitalization: For Stabilization, Consolidate Improvements - This 21 year old male woth historyy of schizoaffective disorder admitted on 02/06, brought in by police from [facility] clinic with increased severity of depressive thoughts and command telling him to hurt himself. He does have a history of suicide attempt 09/2013, overdose that required hospitalization in ICU for a time. He reports that Seroquel Inpatient DSM-IV Dx: 1. Schizoaffective d/o, Depressed type, severe Clinical Impression: This 21 year old male with history of schizoaffective d/o, brought in by police 02/06/17, from [facility] provider with increase in depressive symptoms and command AH that were telling him to hurt himself. Hx of suicide attempt 09/2013, OD with hospitalization in ICU for some time. He was started on Seroquel 150mg po qd 02/08/17,and feels this has helped with his sleep. Trial of Buproprion 150mg po bid began 02/08/17, he denies any side effects. Denies suicidal ideation or self injurious thoughts. He is organized with appropriate conversation he readily engaged today. Eye contact is fair. Mood is "ok". Continued inpatient stay for stabilization, consolidation of progress. Plan - Plan Treatment Plan: Name: STEPHAN REID Birthdate: 1995 [id number] Medications: Current Medications Acetaminophen (Tylenol Tab*) 650 mg PO Q4H PRN PRN Reason: PAIN or TEMP > 101 F Al Hydrox/Mg Hydrox/Simethicone (Maalox Plus*) 30 ml PO Q4H PRN PRN Reason: INDIGESTION Bupropion HCl (Wellbutrin Sr Tab*) 100 mg PO 0700,1400 [facility] Last Admin: 02/10/17 13:53 Dose: 100 mg Multivitamins (Theragran Tab*) 1 tab PO DAILY [facility] Last Admin: 02/10/17 08:02 Dose: 1 tab Quetiapine Fumarate (Seroquel Tab*) 150 mg PO BEDTIME [facility] Last Admin: 02/09/17 21:08 Dose: 150 mg <Yan Alexander - Last Filed: 02/11/17 18:04> Subjective - Subjective Subjective: Reviewed this note written by student psychiatric nurse practitioner, Alecia Alston, and approved it after discussion with her. Plan - Plan Treatment Plan: Name: STEPHAN REID Birthdate: 1995 [id number] Medications: Current Medications Acetaminophen (Tylenol Tab*) 650 mg PO Q4H PRN PRN Reason: PAIN or TEMP > 101 F Al Hydrox/Mg Hydrox/Simethicone (Maalox Plus*) 30 ml PO Q4H PRN PRN Reason: INDIGESTION Bupropion HCl (Wellbutrin Sr Tab*) 100 mg PO 0700,1400 [facility] Last Admin: 02/11/17 13:35 Dose: 100 mg Multivitamins (Theragran Tab*) 1 tab PO DAILY [facility] Last Admin: 02/11/17 07:46 Dose: 1 tab Quetiapine Fumarate (Seroquel Tab*) 150 mg PO BEDTIME [facility] Last Admin: 02/11/17 17:57 Dose: Not Given
[2017-02-11] MEDS: Vitamin THERAPEUTIC TAB PO SCH (07:46)
[2017-02-11] MEDS: buPROPion SR TAB.SR* 100 MG PO SCH ×2 (07:46→13:35)
[2017-02-11] MEDS: QUEtiapine TAB* 100 MG PO SCH ×2 (17:57→20:26)
[2017-02-12] MEDS: Vitamin THERAPEUTIC TAB PO SCH (09:02)
[2017-02-12] MEDS: buPROPion SR TAB.SR* 100 MG PO SCH ×2 (09:02→14:03)
--- NOTE | 2017-02-12 17:07 | PN ---
Subjective - Subjective Service Type: 27976 Hosp care 15 min low complexity Subjective: Tu reports that although he heard voices this morning he feels "OK" and was playing cards with peers. He thinks meds are helping and he hasn't been experiencing any side effects. Denies HI/HI. Slept well last night. Objective - Appearance Appearance: Obese Dysmorphic Features: No Hygiene: Normal Grooming: Fairly Well Kept - Behavior Psychomotor Activities: Normal Exhibits Abnormal Movement: No - Attitude and Relatedness Attitude and Relatedness: Appropriate Eye Contact: Good - Speech Quality: Unpressured Latencies: Normal Quantity: Appropriate - Mood Patient's Decription of Mood: "Okay" - Affect Observed Affect: Constricted Affect Consistent with: Dysphoria - Thought Process Patient's Thought Process: Coherent, Goal Directed Thought Content: No Passive Wish, No Suicidal Planning, No Homicidal Ideation, No Paranoid Ideation - Sensorium Experiencing Hallucinations: No, Sensorium is Clear Type of Hallucinations: Visual: No, Auditory: No, Command: No - Level of Consciousness Level of Consciousness: Alert Orientation: Yes Intact, Yes Orientated to Time, Yes Orientated to Place, Yes Orientated to Person - Impulse Control Impulse Control: Intact - Insight and Judgement Insight and Judgement: Good - Group Participation Particating in Group Activities: Yes - Medication Management Medication Management Adherence: Yes Assessment - Assessment Merits Inpatient Hospitalization: For Stabilization, Consolidate Improvements, For Discharge Planning Inpatient DSM-IV Dx: 1. Schizoaffective d/o, Depressed type, severe Clinical Impression: Tu appears to be improving on current treatments and will need few more days to be on the safer side. Plan - Plan Treatment Plan: Name: STEPHAN REID Birthdate: 1995 [id number] Continued Medication Management: Continue Outpt Medication Medications: Current Medications Acetaminophen (Tylenol Tab*) 650 mg PO Q4H PRN PRN Reason: PAIN or TEMP > 101 F Al Hydrox/Mg Hydrox/Simethicone (Maalox Plus*) 30 ml PO Q4H PRN PRN Reason: INDIGESTION Bupropion HCl (Wellbutrin Sr Tab*) 100 mg PO 0700,1400 [facility] Last Admin: 02/12/17 14:03 Dose: 100 mg Multivitamins (Theragran Tab*) 1 tab PO DAILY [facility] Last Admin: 02/12/17 09:02 Dose: 1 tab Quetiapine Fumarate (Seroquel Tab*) 150 mg PO BEDTIME [facility] Last Admin: 02/11/17 20:26 Dose: 150 mg - Discharge Plan Discharge Plan: Outpatient Follow Up Outpatient Program: [facility]
[2017-02-12] MEDS: QUEtiapine TAB* 100 MG PO SCH (21:01)
[2017-02-13 07:57] VITALS: BP 117/68
[2017-02-13] MEDS: buPROPion SR TAB.SR* 100 MG PO SCH (08:29)
[2017-02-13] MEDS: Vitamin THERAPEUTIC TAB PO SCH (08:47)
--- NOTE | 2017-02-13 11:06 | PN ---
Subjective - Subjective Service Type: 95298 Hosp care 15 min low complexity Subjective: Patient noted to be visible in the milieu, pleasant, social with peers and staff and attending groups. Patient reports his mood "fluctuated" over the weekend. He reports it being up and down. Patient reports some ongoing moderate depression today, but denies SI/HI. Patient requests ability to have his trading cards on the unit as it is a coping mechanism for him. Patient informed this would not be possible on the unit. Patient reports ongoing AHs, but reports they are not derogatory or commanding. Patient reports the voices are reminding him of things he's done wrong in the past. Patient reports no VH. Patient reports med compliance and denies med s/e's. He is amenable to increase in dose of Seroquel and Wellbutrin. He reports ongoing improved sleep and reports appetite is wnl. Objective - Appearance Appearance: Well Developed/Nourished Dysmorphic Features: No Hygiene: Normal Grooming: Fairly Well Kept - Behavior Psychomotor Activities: Normal Exhibits Abnormal Movement: No - Attitude and Relatedness Attitude and Relatedness: Cooperative Eye Contact: Good - Speech Quality: Unpressured Latencies: Normal Quantity: Appropriate Assessment - Assessment Inpatient DSM-IV Dx: 1. Schizoaffective d/o, Depressed type, severe Plan - Plan Treatment Plan: Name: STEPHAN REID Birthdate: 1995 [id number] PLAN: ------ 1. Continue admission to [facility] for safety and symptom mx. 2. Patient is currently on Abilify Maintena, last injection on 01/24/17 at [facility]. Next due on 02/21/17. 4. Will increase Seroquel from 150mg to 200mg po qhs for insomnia. 5. Will increase Wellbutrin from 100mg to 150mg po BID(7am and 2pm) for depressive symptoms. 6. Called patient's outpt psychiatrist Dr. Yung regarding her thoughts on antidepressant vs augmenting SGA or mood stabilizer. Left , awaiting call back. 7. Collateral information obtained from patient's mom, Sada#[phone]. 8. Patient to participate in milieu activities and groups. Medications: Current Medications Acetaminophen (Tylenol Tab*) 650 mg PO Q4H PRN PRN Reason: PAIN or TEMP > 101 F Al Hydrox/Mg Hydrox/Simethicone (Maalox Plus*) 30 ml PO Q4H PRN PRN Reason: INDIGESTION Bupropion HCl (Wellbutrin Sr Tab*) 100 mg PO 0700,1400 [facility] Last Admin: 02/13/17 08:29 Dose: 100 mg Multivitamins (Theragran Tab*) 1 tab PO DAILY [facility] Last Admin: 02/13/17 08:47 Dose: Not Given Quetiapine Fumarate (Seroquel Tab*) 150 mg PO BEDTIME [facility] Last Admin: 02/12/17 21:01 Dose: 150 mg
[2017-02-13] MEDS: buPROPion SR TAB.SR* 150 MG PO SCH (14:41)
[2017-02-13] MEDS ORDERED: QUEtiapine TAB* 100 MG PO SCH (21:00)
[2017-02-14] MEDS: Vitamin THERAPEUTIC TAB PO SCH (09:58)
[2017-02-14] MEDS: buPROPion SR TAB.SR* 150 MG PO SCH ×2 (09:58→13:53)
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
--- NOTE | 2017-02-14 13:16 | PN ---
[facility]: Group Therapy Note - Service Type Service Type: [id number] Group Psychotherapy - Cognitive Behavioral Group Therapy ( CBT):Patient was attentive and participatory in CBT programming this morning, and remained in good behavioral control. Patient expressed positive insights regarding relevant treatment interventions and goals.
== END 2017-02-14 16:30 | disposition home or self-care (01) | DRG 750 ==
LOC: ED 16:08 → BSU 22:18
PROVIDERS: ADMIT Psychiatry & Neurology Psychiatry; ATTEND Psychiatry & Neurology Psychiatry
PROC: GZHZZZZ Group Psychotherapy (ICD-10-PCS; principal; 2017-02-07)
DX: F25.1 Schizoaffective disorder, depressive type (principal); R45.851 Suicidal ideations; E78.00 Pure hypercholesterolemia, unspecified; F43.10 Post-traumatic stress disorder, unspecified; F41.9 Anxiety disorder, unspecified; R40.2362 Coma scale, best motor response, obeys commands, at arrival to emergency department; R40.2142 Coma scale, eyes open, spontaneous, at arrival to emergency department; R40.2252 Coma scale, best verbal response, oriented, at arrival to emergency department; F31.9 Bipolar disorder, unspecified; Z91.5 Personal history of self-harm; Z81.8 Family history of other mental and behavioral disorders; Z80.52 Family history of malignant neoplasm of bladder; Z88.1 Allergy status to other antibiotic agents
CPT/HCPCS: 36415; 80053; 80061; 80307; 80320; 80329; 81003; 81015; 83036; 84443; 85025; 90853; 99222; 99231; 99238; A9270-GY; G0480

== ENCOUNTER → 2018-02-09 13:37 | Emergency (ER) | payer OTHER, MEDICAID ==
--- NOTE | 2018-02-09 14:00 | ED ---
Psychiatric Complaint - HPI Summary HPI Summary: This patient is a 22 year old M presenting to [facility] with a chief complaint of hallucinations since one week [employer]. Pt also reports depression. He states he hears voices and sometimes sees things that are not there. He describes hearing good and bad voices, with the bad ones telling him to do harmful things to himself. Pt states he has not harmed himself. Pt has Hx of SI but states never actually having a plan. Pt denies having harmful weapons in his house. Pt denies HI. Pt occasionally sees a therapist at [facility]. He states he does not do tobacco, drink, or do drugs. Pt states history of psychosis but denies Hx of Schizophrenia. Pt has been admitted previously for pyschiatric complaints. He was last admitted 1-2 years ago. - History Of Current Complaint Chief Complaint: [facility]ental[facility] Time Seen by Provider: 02/09/18 13:48 Hx Obtained From: Patient Onset/Duration: Sudden Onset, Lasting Weeks Timing: Constant Associated Signs And Symptoms: Positive: Hallucinating Related History: Positive For: Prior Psychiatric Issues Has Suicidal: Reports: Thoughts - Hx of. Denies: With A Plan Has Homicidal: Denies: Thoughts - Allergies/Home Medications Allergies/Adverse Reactions: Allergies Allergy/AdvReac Type Severity Reaction Status Date / Time amoxicillin Allergy Hives Verified 02/09/18 13:43 PMH/Surg Hx/FS Hx/Imm Hx Endocrine/Hematology History: Denies: Hx Diabetes Cardiovascular History: Reports: Hx Hypercholesterolemia Sensory History: Denies: Hx Contacts or Glasses, Hx Hearing Aid Opthamlomology History: Denies: Hx Contacts or Glasses Psychiatric History: Reports: Hx Anxiety, Hx Depression, Hx Post Traumatic Stress Disorder, Hx Inpatient Treatment, Hx Community Mental Health Tx, Hx Schizophrenia, Hx Bipolar Disorder, Hx Suicide Attempt - History of OD 2 years ago and "trying to jump off something" Denies: Hx Eating Disorder, Hx of Violent Episodes Against Others, Hx Substance Abuse Infectious Disease History: No Infectious Disease History: Denies: Traveled Outside the [place] in Last 30 Days - Family History Known Family History: Positive: Other - Uncle with bladder cancer. Depression. Negative: Cardiac Disease, Hypertension, Diabetes - Social History Alcohol Use: None Hx Substance Use: No Substance Use Type: Reports: None Hx Tobacco Use: No Smoking Status (MU): Never Smoked Tobacco Amount Used/How Often: Pt has not smoked or used any tobacco products in last 30 days Review of Systems Negative: Fever Positive: Depressed, Other - Hallucinations All Other Systems Reviewed And Are Negative: Yes Physical Exam - Summary Physical Exam Summary: Appearance: Well appearing, no pain distress Skin: warm, dry, reflects adequate perfusion Head/face: normal Eyes: EOMI, RADHA ENT: mucous membranes moist Neck: supple, non-tender Respiratory: CTA, breath sounds present Cardiovascular: RRR, pulses symmetrical Abdomen: non-tender, soft Bowel Sounds: present Musculoskeletal: normal, strength/ROM intact Psychiatric: Flat affect, reports of hallucinations. Neuro: normal, sensory motor intact, A&Ox3 Triage Information Reviewed: Yes Vital Signs On Initial Exam: Initial Vitals Temp Pulse Resp BP Pulse Ox 97.5 F 75 16 136/75 97 02/09/18 13:43 02/09/18 13:43 02/09/18 13:43 02/09/18 13:43 02/09/18 13:43 Vital Signs Reviewed: Yes Diagnostics - Vital Signs Vital Signs Temp Pulse Resp BP Pulse Ox 02/09/18 13:43 97.5 F 75 16 136/75 97 - Laboratory Result Diagrams: 02/09/18 13:55 02/09/18 13:55 Lab Statement: Any lab studies that have been ordered have been reviewed, and results considered in the medical decision making process. - EKG EKG EKG Interpretation: 1409 NSR 62 BPM Normal axis intervals, Normal ST. 1409 Cardiac Rate: NL EKG Rhythm: Sinus Rhythm ST Segment: Normal EKG Interpretation: Normal axis intervals, Normal ST. Course/Dx - Course Course Of Treatment: Patient was medically cleared by me. He remained stable through. Of observation in the ER. Mental health evaluation was performed and it was elected that he be admitted. There are no beds available at this facility and so a bed search was underway. He is expected to be transferred once bed is made available. Patient signed out to oncoming ER physician at 7 PM. - Differential Dx/Clinical Impression Differential Diagnosis/HQI/PQRI: Positive: Acute Psychosis, Schizophrenia Provider Diagnosis: Psychosis Discharge - Sign-Out/Discharge Documenting (check all that apply): Sign-Out Patient Signing out patient TO: Bandar Whitaker - Discharge Plan Condition: Stable Disposition: PSYCHIATRIC FACILITY-OTHER Referrals: No Primary Care Phys,NOPCP [Primary Care Provider] - - Billing Disposition and Condition Condition: STABLE Disposition: Psychiatric Facility Other - Attestation Statements Document Initiated by Pavan: Yes Documenting Scribe: Porter Tapia Provider For Whom Pavan is Documenting (Include Credential): Amando Casper MD Scribe Attestation: Porter Glaser, scribed for Amando Casper MD on 02/09/18 at 1825. Scribe Documentation Reviewed: Yes Provider Attestation: The documentation as recorded by the Porter ross accurately reflects the service I personally performed and the decisions made by me, Amando Casper MD
[2018-02-09 14:01] LABS: ABS Basophils 0.1 10^3/ul (0-0.2); ABS Eosinophils 0.2 10^3/ul (0-0.6); ABS Lymphocytes 2.9 10^3/ul (1.0-4.8); ABS Monocytes 0.4 10^3/ul (0-0.8); ABS Neutrophils 2.7 10^3/ul (1.5-7.7); ABS Nucleated RBC 0 10^3/ul; Eosinophil % 2.7 % (0-6); Hematocrit 48 % (42-52); Hemoglobin 16.2 g/dl (14.0-18.0); Lymphocyte % 45.8 % (25-47); Mean Corpuscular HGB Conc 34 g/dl (31-36); Mean Corpuscular Hemoglobin 27 pg (27-31); Mean Corpuscular Volume 80 fL (80-94); Nucleated Red Blood Cells % 0.2; Platelet Count 260 10^3/ul (150-450); Red Blood Count 5.96 10^6/ul (4.00-5.40); Red Cell Distribution Width 14 % (10.5-15); White Blood Count 6.2 10^3/ul (3.5-10.8)
[2018-02-09 14:17] LABS: EGFR Non-African American 96.2 (>60)
[2018-02-09 15:36] LABS: Urine Appearance Clear; Urine Blood Negative (Negative); Urine Color Straw; Urine Ketones Negative (Negative); Urine Protein Negative (Negative); Urine Specific Gravity 1.004 (1.010-1.030); Urine Urobilinogen Negative (Negative)
[2018-02-10 04:43] VITALS: BP 113/60
== END ==
LOC: ED 13:37
DX: F29 Unspecified psychosis not due to a substance or known physiological condition (principal); E78.00 Pure hypercholesterolemia, unspecified; F20.9 Schizophrenia, unspecified
CPT/HCPCS: 36415; 80053; 80307; 80320; 80329; 81003; 84443; 85025; 93005; 99285; G0480

== ENCOUNTER 2018-10-24 11:07 | Inpatient (IN) | payer OTHER, MEDICAID ==
--- NOTE | 2018-10-24 11:12 | ED ---
Psychiatric Complaint - HPI Summary HPI Summary: Patient is a 22-year-old male who presents to the ED with suicidal ideations. He denies these currently, however states the thoughts come and go. He states he thinks about plans to harm himself often, but denies a set plan at this time. He denies any HI. He does have a history of depression and anxiety. His symptoms have been worsening and he was able to call his therapist today to let them know of his worsening suicidal thoughts. Patient voluntarily came into the ED today by way of EMS. Denies any drug or alcohol use. - History Of Current Complaint Time Seen by Provider: 10/24/18 11:09 Hx Obtained From: Patient Onset/Duration: Lasting Weeks Timing: Constant Severity Initially: Moderate Severity Currently: Moderate Character: Manic, Depressed Aggravating Factor(s): Nothing Alleviating Factor(s): Nothing Associated Signs And Symptoms: Positive: Negative Has Suicidal: Reports: Thoughts - several thoughts which have been getting worse - Allergies/Home Medications Allergies/Adverse Reactions: Allergies Allergy/AdvReac Type Severity Reaction Status Date / Time amoxicillin Allergy Hives Verified 02/09/18 13:43 PMH/Surg Hx/FS Hx/Imm Hx Previously Healthy: Yes Endocrine/Hematology History: Denies: Hx Diabetes Cardiovascular History: Reports: Hx Hypercholesterolemia Sensory History: Denies: Hx Contacts or Glasses, Hx Hearing Aid Opthamlomology History: Denies: Hx Contacts or Glasses Psychiatric History: Reports: Hx Anxiety, Hx Depression, Hx Post Traumatic Stress Disorder, Hx Inpatient Treatment, Hx Community Mental Health Tx, Hx Schizophrenia, Hx Bipolar Disorder, Hx Suicide Attempt - History of OD 2 years ago and "trying to jump off something" Denies: Hx Eating Disorder, Hx of Violent Episodes Against Others, Hx Substance Abuse - Immunization History Hx Pertussis Vaccination: No Immunizations Up to Date: Yes - Family History Known Family History: Positive: None, Other - Uncle with bladder cancer. Depression. Negative: Cardiac Disease, Hypertension, Diabetes Family History: pt denies a significant FHx - Social History Occupation: Unemployed Lives: Alone Alcohol Use: None Hx Substance Use: No Substance Use Type: Reports: None Hx Tobacco Use: No Smoking Status (MU): Never Smoked Tobacco Amount Used/How Often: Pt has not smoked or used any tobacco products in last 30 days Review of Systems Constitutional: Negative Negative: Fever, Chills, Fatigue, Skin Diaphoresis Negative: Palpitations, Chest Pain Negative: Shortness Of Breath, Cough Genitourinary: Negative Positive: no symptoms reported, see HPI Neurological: Negative Positive: Anxious, Depressed All Other Systems Reviewed And Are Negative: Yes Physical Exam Triage Information Reviewed: Yes Vital Signs Reviewed: Yes Appearance: Positive: Well-Appearing, Well-Nourished Skin: Positive: Warm, Skin Color Reflects Adequate Perfusion Head/Face: Positive: Normal Head/Face Inspection Eyes: Positive: EOMI, Conjunctiva Clear Neck: Positive: Supple, No Lymphadenopathy Respiratory/Lung Sounds: Positive: Clear to Auscultation, Breath Sounds Present Cardiovascular: Positive: RRR, Pulses are Symmetrical in both Upper and Lower Extremities Musculoskeletal: Positive: Strength/ROM Intact Neurological: Positive: Sensory/Motor Intact, Alert, Oriented to Person Place, Time, Speech Normal Psychiatric: Positive: Affect/Mood Appropriate AVPU Assessment: Alert Diagnostics - Laboratory Result Diagrams: 10/24/18 11:27 10/24/18 11:27 Lab Statement: Any lab studies that have been ordered have been reviewed, and results considered in the medical decision making process. Course/Dx - Course Course Of Treatment: Patient is evaluated for mental health. Patient states he has been having suicidal thoughts which have been worsening over the past 2 weeks. Today he called his therapist and let them know about his suicidal thoughts. He states for these reasons of frequent suicidal thoughts, he decided to come to the ED for further evaluation. Therapist is made aware. Labs obtained, UA obtained. Patient is cleared for mental health at 11:[address] Cortez to assess patient and patient will come in admission voluntarily for suicidal thoughts. - Differential Dx/Clinical Impression Provider Diagnosis: Suicidal thoughts Discharge - Sign-Out/Discharge Documenting (check all that apply): Patient Departure Patient Received Moderate/Deep Sedation with Procedure: No - Discharge Plan Condition: Fair Disposition: ADMITTED TO [facility] Referrals: No Primary Care Phys,NOPCP [Primary Care Provider] - - Billing Disposition and Condition Condition: FAIR Disposition: Admitted to [facility]
[2018-10-24 11:35] LABS: ABS Basophils 0.1 10^3/ul (0-0.2); ABS Eosinophils 0.1 10^3/ul (0-0.6); ABS Lymphocytes 2.4 10^3/ul (1.0-4.8); ABS Monocytes 0.5 10^3/ul (0-0.8); ABS Neutrophils 3.1 10^3/ul (1.5-7.7); Eosinophil % 1.6 %; Hematocrit 48 % (42-52); Hemoglobin 16.1 g/dL (14.0-18.0); Lymphocyte % 39.2 %; Mean Corpuscular HGB Conc 34 g/dL (31-36); Mean Corpuscular Hemoglobin 27 pg (27-31); Mean Corpuscular Volume 79 fL (80-94); Mean Platelet Volume 7.2 fL (7.4-10.4); Nucleated Red Blood Cells % 0.1; Platelet Count 233 10^3/uL (150-450); Red Blood Count 6.02 10^6 /uL (4.18-5.48); Red Cell Distribution Width 14 % (10-15)
[2018-10-24 12:15] LABS: ALT 35 U/L (7-52); AST 23 U/L (13-39); Albumin 4.5 g/dL (3.2-5.2); Albumin/Globulin Ratio 1.7 (1-3); Alkaline Phosphatase 55 U/L (34-104); Anion Gap 7 mmol/L (2-11); Blood Urea Nitrogen 14 mg/dL (6-24); CO2 Carbon Dioxide 24 mmol/L (22-32); Calcium 9.5 mg/dL (8.6-10.3); Chloride 107 mmol/L (101-111); EGFR African American 111.1 (>60); EGFR Non-African American 91.8 (>60); Globulin 2.6 g/dL (2-4); Glucose 96 mg/dL (70-100); Potassium 4.2 mmol/L (3.5-5.0); Sodium 138 mmol/L (135-145); Total Protein 7.1 g/dL (6.4-8.9)
[2018-10-24 12:28] LABS: Acetaminophen < 15 mcg/mL; Alcohol < 10 mg/dL (<10); Salicylate < 2.50 mg/dL (<30)
[2018-10-24 12:43] LABS: TSH (Thyroid Stimulating Horm) 1.65 mcIU/mL (0.34-5.60)
[2018-10-24] MEDS ORDERED: Al Hydrox/Mg Hydrox/Simet LIQ* 30 ML UDC PO PRN (13:54)
[2018-10-24] MEDS ORDERED: Acetaminophen TAB* 325 MG PO PRN (13:54)
[2018-10-24] MEDS ORDERED: hydrOXYzine HCL TAB* 50 MG PO PRN (13:56)
[2018-10-25 09:12] LABS: HDL Cholesterol 26.5 mg/dL
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
--- NOTE | 2018-10-26 13:59 | PN ---
Subjective - Subjective Date of Service: 10/26/18 Service Type: 97048 Hosp care 15 min low complexity Subjective: Mike reports he had been told that he should stay the weekend to hang out with other people to see if he could get along with other people. He said he cannot take more medications because he lives too far from medical services that could keep him safe from overdosing. He reports he was asked to come into the hospital because his therapist at [facility] was worried about him because he looked down, not that he was "threatening or anything." He denies that he has ever been threatening. He does report feeling threatened by the patient on the unit who has been attempting to provoke others. He reports he hasn't slept here at all here. Objective - General Observations Appearance: Malodorous - does not have change of clothes Appears Stated Age: Yes Stature: Overweight Posture: Slumped Eye Contact: Average Behavior/Activity: WNL - Interaction Observations Attitude Towards Examiner: Cooperative Stated Mood: Dysphoric - "tolerable, just depression" Affect: Flat Speech Pattern/Tone: Clear, Appropriate, Normal Volume Thought Process: Coherent, Goal Directed Thought Content: Depressive Hallucination Type: Auditory - "just the good ones, the bad ones don't act up much anymore" Delusion Type: None - Cognitive Function Orientation: A&O x 4 Level of Consciousness: Awake, Alert, Appropriate Cognition: WNL - I'm bad at remembering names, that's all Estimated Intelligence: Normal Insight: WNL Judgment Within Normal Limits: Yes Ability to Make Reasonable Decisions: Mildly Impaired - Medication Compliance Cooperative with Inpatient Medication Regimen: Yes - Group Participation Participates in Group Activities: Yes Assessment - Assessment Merits Inpatient Hospitalization: For Immediate Safety, For Ongoing Evaluation Inpatient DSM-V Dx: F25.9 Clinical Impression: Mike was admitted with report of having had plan to kill himself by walking into traffic. He can pleasantly engage in an interview, but lacks insight into his reason for admission and continued care here. He is concerned about being targeted by another patient on the unit. He is not able to fully engage in the milieu and groups in part due to this concern. Plan - Plan Treatment Plan: Name: MIKE REID Birthdate: 1995 [id number] Encourage hauser engagement with peers on the unit. Work with staff to help him avoid provocative patient. Continue to observe for safety and assessment. Coordinate care with outpatient providers. Continued Medication Management: Continue Outpt Medication Medications: Current Medications Acetaminophen (Tylenol Tab*) 650 mg PO Q4H PRN PRN Reason: for pain; or Temp >101 F Al Hydrox/Mg Hydrox/Simethicone (Maalox Plus*) 30 ml PO Q4H PRN PRN Reason: INDIGESTION Hydroxyzine HCl (Atarax Tab*) 50 mg PO Q6H PRN PRN Reason: ANXIETY Last Admin: 10/25/18 17:57 Dose: 50 mg Receives Abilify Maintenna injections monthly, last was last Sunday. - Discharge Plan Discharge Plan: Outpatient Follow Up Outpatient Program: [facility]
[2018-10-26] MEDS: Temazepam CAP* 15 MG PO PRN (20:48)
[2018-10-27] MEDS: Temazepam CAP* 15 MG PO PRN (18:26)
[2018-10-28 11:45] VITALS: BP 119/73
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
== END 2018-10-28 13:20 | disposition home or self-care (01) | DRG 885 ==
LOC: ED 11:07 → BSU 14:55
PROVIDERS: ADMIT Psychiatry & Neurology Psychiatry; ATTEND Psychiatry & Neurology Psychiatry
DX: F25.9 Schizoaffective disorder, unspecified (principal); R45.851 Suicidal ideations; E78.00 Pure hypercholesterolemia, unspecified; F41.9 Anxiety disorder, unspecified; F43.10 Post-traumatic stress disorder, unspecified; G47.00 Insomnia, unspecified; F31.9 Bipolar disorder, unspecified; Z91.5 Personal history of self-harm; Z88.0 Allergy status to penicillin; Z56.0 Unemployment, unspecified; Z81.8 Family history of other mental and behavioral disorders; Z80.52 Family history of malignant neoplasm of bladder
CPT/HCPCS: 36415; 80053; 80061; 80320; 80329; 83036; 84443; 85025; 99222; 99231; 99238; 99284; A9270-GY; G0480

== ENCOUNTER 2019-04-23 13:39 | Emergency (ER) | payer OTHER, MEDICAID ==
--- NOTE | 2019-04-23 14:07 | ED ---
Psychiatric Complaint - HPI Summary HPI Summary: The patient is a 23 y/o F presenting to [facility] accompanied by two female companions with a chief complaint of worsening depression and stress over the last months. He reports that he is unsure why he is feeling like this, but he states that his happiness has been gone for a long time. He notes that he often finds himself faking his emotions when speaking with others. He experiences auditory hallucinations secondary to dx of psychosis, but he does not experience visual ones. He has body tremors but he states this happens during these episodes. He denies SI and HI at this time. He endorses mild abdominal discomfort likely due to his stress. He denies any blurred vision, dizziness, or N/V/D. PMHx: anxiety, depression, PTSD, inpatient treatment, schizophrenia, bipolar disorder, suicide attempt. Psychiatrist is Dr. Yung. Nonsmoker, no EtOH, no substance use. Medications reviewed. Allergies noted. - History Of Current Complaint Chief Complaint: EDMentalHealth Time Seen by Provider: 04/23/19 13:47 Hx Obtained From: Patient Onset/Duration: Gradual Onset, Lasting Weeks, Still Present Timing: Constant Severity Initially: Mild Severity Currently: Moderate Character: Depressed Aggravating Factor(s): Recent Stress Alleviating Factor(s): Nothing Associated Signs And Symptoms: Positive: Hallucinating - auditory Related History: Positive For: Prior Psychiatric Issues Has Suicidal: Denies: Thoughts Has Homicidal: Denies: Thoughts - Allergies/Home Medications Allergies/Adverse Reactions: Allergies Allergy/AdvReac Type Severity Reaction Status Date / Time amoxicillin Allergy Hives Verified 04/23/19 13:45 PMH/Surg Hx/FS Hx/Imm Hx Endocrine/Hematology History: Denies: Hx Diabetes Cardiovascular History: Reports: Hx Hypercholesterolemia Sensory History: Denies: Hx Contacts or Glasses, Hx Hearing Aid Opthamlomology History: Denies: Hx Contacts or Glasses Psychiatric History: Reports: Hx Anxiety, Hx Depression, Hx Post Traumatic Stress Disorder, Hx Inpatient Treatment, Hx Community Mental Health Tx, Hx Schizophrenia, Hx Bipolar Disorder, Hx Suicide Attempt - History of OD 2 years ago and "trying to jump off something" Denies: Hx Eating Disorder, Hx of Violent Episodes Against Others, Hx Substance Abuse - Surgical History Surgical History: None Surgery Procedure, Year, and Place: none Infectious Disease History: No Infectious Disease History: Denies: Traveled Outside the [place] in Last 30 Days - Family History Known Family History: Positive: Other - Uncle with bladder cancer. Depression. Negative: Cardiac Disease, Hypertension, Diabetes Family History: pt denies a significant FHx - Social History Alcohol Use: None Hx Substance Use: No Substance Use Type: Reports: None Hx Tobacco Use: No Smoking Status (MU): Never Smoked Tobacco Amount Used/How Often: Pt has not smoked or used any tobacco products in last 30 days Review of Systems Negative: Blurred Vision Positive: Cough Positive: Abdominal Pain. Negative: Vomiting, Diarrhea, Nausea Neurological: Other - body tremors of extremities; Negative: dizziness Psychological: Other - auditory hallucinations Positive: Depressed. Negative: Other - SI, HI, visual hallucinations All Other Systems Reviewed And Are Negative: Yes Physical Exam - Summary Physical Exam Summary: Constitutional: Well-developed, Well-nourished, Alert. (-) Distressed Skin: Warm, Dry HENT: Normocephalic; Atraumatic Eyes: Conjunctiva normal Neck: Musculoskeletal ROM normal neck. (-) JVD, (-) Stridor, (-) Tracheal deviation Cardio: Rhythm regular, rate normal, Heart sounds normal; Intact distal pulses; Radial pulses are 2+ and symmetric. (-) Murmur Pulmonary/Chest wall: Effort normal. (-) Respiratory distress, (-) Wheezes, (-) Rales Abd: Soft, (-) tenderness, (-) Distension, (-) Guarding, (-) Rebound Musculoskeletal: (-) Edema Lymph: (-) Cervical adenopathy Neuro: Alert, Oriented x3 Psych: Mood and affect Normal Triage Information Reviewed: Yes Vital Signs On Initial Exam: Initial Vitals Temp Pulse Resp BP Pulse Ox 98.1 F 96 14 130/86 98 04/23/19 13:40 04/23/19 13:40 04/23/19 13:40 04/23/19 13:40 04/23/19 13:40 Vital Signs Reviewed: Yes Procedures - Sedation Patient Received Moderate/Deep Sedation with Procedure: No Diagnostics - Vital Signs Vital Signs Temp Pulse Resp BP Pulse Ox 04/23/19 13:40 98.1 F 96 14 130/86 98 - Laboratory Result Diagrams: 04/23/19 15:06 04/23/19 15:06 Lab Statement: Any lab studies that have been ordered have been reviewed, and results considered in the medical decision making process. Re-Evaluation - Re-Evaluation First Eval Re-Evaluation Time: 14:15 Comment: Patient is medically clear for MHE. Course/Dx - Course Course Of Treatment: Patient is here with passive suicidal thoughts studies had for months. Patient was medically cleared by myself. Patient was evaluated by the mental health staff and they thought he was stable for outpatient treatment. Patient was discharged by them. - Differential Dx/Clinical Impression Provider Diagnosis: Schizoaffective disorder - Physician Notifications Discussed Care Of Patient With: Akash Srinivasan - mental health licensed insurance agent Time Discussed With Above Provider: 18:00 Instructed by Provider To: Other - Akash reports that Dr. Long, psychiatry, has evaluted the patient and has determined that he is appropriate for discharge with outpatient treatment in place, diagnosis of schizoaffective disorder Discharge ED - Sign-Out/Discharge Documenting (check all that apply): Patient Departure - Patient will be discharged by [facility] staff. - Discharge Plan Condition: Stable Disposition: HOME Patient Education Materials: Depression (ED) Referrals: [facility] [Outside] Additional Instructions: Per completion of a mental health evaluation, you are cleared for release and do not require inpatient psychiatric hospitalization at this time. Please go to nearest emergency room or call 911 if safety concerns arise or condition worsens. Important Phone Numbers: [facility] ph:[phone] Suicide Prevention and Crisis Services ph:[phone] National Suicide Prevention Lifeline ph:[phone] (8157) [facility] ph:[phone] Alcoholics Anonymous ph: [facility] ph:[phone] [facility] ph:[phone] Recommendation: Follow up with [facility] tomorrow. - Billing Disposition and Condition Condition: STABLE Disposition: Home - Attestation Statements Document Initiated by Scribe: Yes Documenting Scribe: Makenzie De Leon Provider For Whom Scribe is Documenting (Include Credential): Dr. Dom Lilly MD Scribe Attestation: Makenzie Glaser, scribed for Dr. oDm Lilly MD on 04/23/19 at 1599. Scribe Documentation Reviewed: Yes Provider Attestation: The documentation as recorded by the marizolibe, Makenzie De Leon accurately reflects the service I personally performed and the decisions made by me, Dr. Dom Lilly MD Status of [place] Document: Viewed
[2019-04-23 14:39] LABS: Urine Appearance Clear; Urine Bilirubin Negative (Negative); Urine Blood Negative (Negative); Urine Color Yellow; Urine Glucose Negative (Negative); Urine Ketones Negative (Negative); Urine Nitrite Negative (Negative); Urine Protein Negative (Negative); Urine Specific Gravity 1.018 (1.010-1.030); Urine Urobilinogen Negative (Negative)
[2019-04-23 14:56] LABS: Urine Benzodiazepine Screen None Detected (None Detect); Urine Opiates Screen None Detected (None Detect)
[2019-04-23 15:28] LABS: ABS Basophils 0.1 10^3/ul (0-0.2); ABS Eosinophils 0.1 10^3/ul (0-0.6); ABS Monocytes 0.6 10^3/ul (0-0.8); ABS Neutrophils 4.3 10^3/ul (1.5-7.7); Eosinophil % 1.6 %; Hematocrit 48 % (42-52); Hemoglobin 16.2 g/dL (14.0-18.0); Lymphocyte % 36.8 %; Mean Corpuscular HGB Conc 34 g/dL (31-36); Mean Corpuscular Hemoglobin 27 pg (27-31); Mean Corpuscular Volume 80 fL (80-94); Mean Platelet Volume 7.5 fL (7.4-10.4); Nucleated Red Blood Cells % 0.1; Platelet Count 279 10^3/uL (150-450); Red Blood Count 5.97 10^6 /uL (4.18-5.48); Red Cell Distribution Width 14 % (10-15); White Blood Count 8.1 10^3/uL (3.5-10.8)
[2019-04-23 15:46] LABS: ALT 40 U/L (7-52); AST 24 U/L (13-39); Albumin 4.5 g/dL (3.2-5.2); Albumin/Globulin Ratio 1.6 (1-3); Alkaline Phosphatase 55 U/L (34-104); Anion Gap 6 mmol/L (2-11); Blood Urea Nitrogen 9 mg/dL (6-24); CO2 Carbon Dioxide 29 mmol/L (22-32); Calcium 9.8 mg/dL (8.6-10.3); Chloride 104 mmol/L (101-111); EGFR African American 96.7 (>60); EGFR Non-African American 79.9 (>60); Globulin 2.9 g/dL (2-4); Glucose 91 mg/dL (70-100); Potassium 3.9 mmol/L (3.5-5.0); Sodium 139 mmol/L (135-145); Total Protein 7.4 g/dL (6.4-8.9)
[2019-04-23 15:50] LABS: Acetaminophen < 15 mcg/mL; Alcohol < 10 mg/dL (<10); Salicylate < 2.50 mg/dL (<30)
[2019-04-23 16:05] LABS: TSH (Thyroid Stimulating Horm) 1.97 mcIU/mL (0.34-5.60)
[2019-04-23 22:55] VITALS: BP 121/72
== END 2019-04-23 18:30 | disposition home or self-care (01) ==
LOC: ED 13:39
DX: F25.9 Schizoaffective disorder, unspecified (principal); E78.00 Pure hypercholesterolemia, unspecified; F41.9 Anxiety disorder, unspecified; F32.9 Major depressive disorder, single episode, unspecified; F43.10 Post-traumatic stress disorder, unspecified; Z88.0 Allergy status to penicillin
CPT/HCPCS: 36415; 80053; 80307; 80320; 80329; 81003; 84443; 85025; 99284; G0480

== ENCOUNTER 2019-06-25 19:35 | Emergency (ER) | payer OTHER, MEDICAID ==
[2019-06-25 19:44] VITALS: BP 137/80
--- OUTSIDE RECORDS SUMMARY | 2019-06-25 19:45 | XMS REPORT ---
:1995 Author Organization [facility] Care Team Providers Name Role Phone Danyelle Horton Primary Care Physician Unavailable Allergies, Adverse Reactions, Alerts Allergy Code CodeSystem Reaction Severity Criticality Status Start Substance Date Moderate Medications Medication Medication Medication Start Stop Route Dose Status Fill Code CodeSystem Date Date Instructions ABILIFY RxNorm 2017-12 active for 28 MAINTENA 400 -03 day(s) MG PRSY Prozac 625128 RxNorm 2018-10 oral 10 mg 1 active 1 capsule -27 0-03 capsule once a day once a for 14 day(s) day Abilify 1876030 RxNorm 2018-10 IM 400 mg active for 28 Maintena -28 2-13 suspensio day(s) n,extende d rel syring Problems Problem Name Code CodeSystem Alternate Alternate Start End Status Narrative Code CodeSystem Date Date Schizoaffective 89141148 SNOMED-CT Active disorder, 3-22 Depressive type Relevant diagnostic tests/laboratory data Narrative No Information Procedures Procedure Code CodeSystem Target Date of Status Service Device Device Device Name Site Procedure Delivery Code Name UID Location Comprehensiv 784486 SNOMED-CT () 2019-03-03 complete Mental e medication 0 d Health- services, [place] [address] [place] [address] [place], [place], [id number] Comprehensiv 886303 SNOMED-CT () 2018-10-21 complete Mental e medication 0 d Health- services, [place] [address] [place] [address] [place], [place], [id number] [phone] Comprehensiv 551699 SNOMED-CT () 2019-06-06 complete Mental e medication 0 d Health- services, [place] [address] [place], [place], [id number] [id number] Office or 104948 SNOMED-CT () 2019-05-19 complete Mental other 6 d Health- outpatient [place] visit for [address], established [id number] patient, [id number] which requires at least 2 of these 3 evangelista components: A problem focused history; A problem focused examination; Straightforw emelina medical decision [facility] [place] [id number] SNOMED-CT () 2019-02-14 complete Mental other 6 d Health- outpatient [place] visit for [address], established [id number] patient, [id number] which requires at least 2 of these 3 evangelista components: A problem focused history; A problem focused examination; Straightforw emelina medical decision making. Counselin Comprehensiv 151760 SNOMED-CT () 2018-11-20 complete Mental e medication 0 d Health- services, [place] [address] [place] [address], [id number] [phone] Office or [id number] SNOMED-CT () 2018-08-07 complete Mental other 7 d Health- outpatient [place] visit for [address], established [id number] patient, [phone] which requires at least 2 of these 3 evangelista components: An expanded problem focused history; An expanded problem focused examination; Medical decision making of [facility] Office or [id number] SNOMED-CT () 2018-11-25 complete Mental other 6 d Health- outpatient [place] visit for [address], established [phone] patient, [id number] which requires at least 2 of these 3 evangelista components: A problem focused history; A problem focused examination; Straightforw emelina medical decision making. Counselin SNOMED-CT () 2018-10-29 complete Mental d Health- [place] [address], [id number] [id number] Comprehensiv 797976 SNOMED-CT () 2018-12-25 complete Mental e medication 0 d Health- services, [place] [address] [place] [address], [id number] [id number] Comprehensiv 518341 SNOMED-CT () 2018-08-20 complete Mental e medication 0 d Health- services, [place] [address] [place] [address], [id number] [phone] Comprehensiv 371643 SNOMED-CT () 2019-02-03 complete Mental e medication 0 d Health- services, [place] [address] [place] [address], [id number] [phone] Office or 336792 SNOMED-CT () 2018-10-31 complete Mental other 6 d Health- outpatient [place] visit for [address], management [place], of an [place], established [id number] patient, [phone] which requires at least 2 of these 3 evangelista components: A problem focused history; A problem focused examination; Straightforw emelina medical decision making. Counselin Comprehensiv [id number] SNOMED-CT () 2019-05-06 complete Mental e medication 0 d Health- services, [place] [address], [id number] [phone] Comprehensiv 322246 SNOMED-CT () 2018-09-18 complete Mental e medication 0 d Health- services, [place] [address] [place] [address], [id number] [phone] Comprehensiv 773760 SNOMED-CT () 2019-04-02 complete Mental e medication 0 d Health- services, [place] [address], [id number] [phone] Psychotherap [id number] SNOMED-CT () 2018-10-24 complete Mental y, 45 04 d Health- minutes with [place] patient [address], [id number] [phone] Encounters/Encounter Diagnoses Encounter Name Encounter Diagnosis Diagnosis Name Diagnosis Date of Service Code Code CodeSystem Diagnosis Delivery Location Injectable H2010 [id number] Schizoaffective SNOMED-CT 2019-06-06 Behavioral Medication disorder, Health Administration Depressive type Clinic [address] with Monitoring [place], [place], [id number] Vital Signs No Information Social History Element Description Description Start End Code CodeSystem AdditionalInfo Date Date SexAssignedAtBirth Male 1996-0 M AdministrativeGender 8-03 Hospital Discharge Instructions Reason For Referral Medical Equipment FDA Assessments
--- NOTE | 2019-06-25 20:14 | UC ---
Cardiac HPI - HPI Summary HPI Summary: PATIENT ARRIVES COMPLAINING OF 30 MINUTES OF LEFT ANTERIOR CHEST PAIN AND FEELING DIZZY/LIGHTHEADED. NO SHORTNESS OF BREATH, NAUSEA, SWEATS. CHEST PAIN IS WORSE WHEN HE MOVES HIS LEFT ARM AROUND. - History of Current Complaint Chief Complaint: UCChestPain Stated Complaint: CHEST PAIN Time Seen by Provider: 06/25/19 19:44 Hx Obtained From: Patient, Family/Trust Administrative Assistant - GRANDMOTHER Onset/Duration: Sudden Onset, Lasting Minutes, Still Present Timing: Constant Initial Severity: Mild Current Severity: Mild Pain Intensity: 3 Character: Sharp/Stabbing Aggravating Factor(s): Other - MOVING LEFT ARM Alleviating Factor(s): Nothing Associated Signs & Symptoms: Positive: Chest Pain, Dizziness. Negative: Anxiety , Recent Stress, Headaches, Numbness, Tingling, Weakness, SOB, Syncope, Fever, Nausea/Vomiting, Palpitations, Cough, Back Pain - Allergy/Home Medications Allergies/Adverse Reactions: Allergies Allergy/AdvReac Type Severity Reaction Status Date / Time amoxicillin Allergy Hives Verified 06/25/19 19:44 Home Medications: Home Medications Aripiprazole Maintena (NF) [Abilify Maintena (NF)] 400 mg IM Q28D syringe 05/10 [Rx Confirmed 06/25/19] PMH/Surg Hx/FS Hx/Imm Hx Psychological History: Depression, Bipolar Disorder, Schizophrenia - Surgical History Surgical History: None Surgery Procedure, Year, and Place: none - Family History Known Family History: Positive: None, Other - Uncle with bladder cancer. Depression. Negative: Cardiac Disease, Hypertension, Diabetes Family History: pt denies a significant FHx - Social History Alcohol Use: None Substance Use Type: None Smoking Status (MU): Never Smoked Tobacco Amount Used/How Often: Pt has not smoked or used any tobacco products in last 30 days - Immunization History Most Recent Influenza Vaccination: Unsure Most Recent Tetanus Shot: Less than 10 years ago Most Recent Pneumonia Vaccination: Never Review of Systems All Other Systems Reviewed And Are Negative: Yes Constitutional: Positive: Negative Respiratory: Positive: Negative Cardiovascular: Positive: Chest Pain Gastrointestinal: Positive: Negative Neurological/Mental Status: Positive: Other - DIZZY Physical Exam Triage Information Reviewed: Yes Appearance: Well-Appearing, No Pain Distress, Well-Nourished, Other: - SLIGHT TREMOR Vital Signs: Initial Vital Signs Temp 99.8 F 06/25/19 19:41 Pulse 93 06/25/19 19:41 Resp 16 06/25/19 19:41 BP 137/80 06/25/19 19:41 Pulse Ox 96 06/25/19 19:41 Vital Signs Reviewed: Yes Eyes: Positive: Conjunctiva Clear ENT: Positive: Hearing grossly normal Neck: Positive: Supple, Nontender, No Lymphadenopathy Respiratory Exam: Normal Cardiovascular Exam: Normal Abdomen Description: Positive: Soft Musculoskeletal: Positive: No Edema Neurological: Positive: Alert Psychological: Positive: Normal Response To Family, Age Appropriate Behavior Skin: Negative: Rashes Diagnostics - EKG Cardiac Rate: NL - 89BPM Cardiac Rhythm: Sinus: Normal Ectopy: None ST Segment: Normal - Assessment/Plan Course Of Treatment: PATIENT ARRIVES COMPLAINING OF DIZZINESS AND LIGHTHEADEDNESS ALONG WITH SHARP LEFT ANTERIOR CHEST PAIN. EKG UNREMARKABLE. PT DECLINES TRANSFER TO ER. ADVISED THAT HE COULD BE RISKING WORSENING OF HIS CONDITION THAT COULD POSE A THREAT TO HIS LIFE, HEALTH AND MEDICAL SAFETY. HE VERBALIZES UNDERSTANDING AND CONTINUES TO DECLINE TRANSFER. PATIENT IS ACCOMPANIED BY HIS GRANDMOTHER AND ALSO SPOKE TO HIS MOTHER ON THE PHONE AND THEY BOTH AGREE WITH THIS DECISION. I DISCUSSED WITH PATIENT THAT WHILE AN ACUTE UNDERLYING CARDIAC CONDITION WAS UNLIKELY WE ARE UNABLE TO DEFINITIVELY RULE THIS OUT IN THE URGENT CARE. ABILIFY CAN CAUSE DIZZINESS AND LIGHTHEADEDNESS AND TREMOR. I INSTRUCTED HIM TO FOLLOW-UP WITH HIS PRESCRIBER SOLA TO DISCUSS HIS MEDICATION. - Clinical Impression Provider Diagnosis: Dizziness Discharge ED - Sign-Out/Discharge Documenting (check all that apply): Patient Departure All imaging exams completed and their final reports reviewed: No Studies - Discharge Plan Condition: Stable Disposition: HOME Patient Education Materials: Noncardiac Chest Pain (ED) Referrals: No Primary Care Phys,NOPCP [Primary Care Provider] - Additional Instructions: EKG TODAY IS UNREMARKABLE. YOU HAVE DECLINED TRANSFER TO THE ED TODAY WITH THE UNDERSTANDING THAT WE ARE UNABLE TO ADEQUATELY EVALUATE FOR ANY UNDERLYING CARDIAC CONDITIONS IN THE URGENT CARE. ABILIFY CAN CAUSE TREMULOUSNESS AND DIZZINESS. I RECOMMEND YOU FOLLOW-UP WITH YOUR PRESCRIBER TO DISCUSS THIS POSSIBILITY. GO TO ER WITHOUT FAIL IF YOU DEVELOP WORSENING DIZZINESS, SHORTNESS OF BREATH, CHEST PAIN, NAUSEA, SWEATS OR ANY OTHER CONCERNING SYMPTOMS. - Billing Disposition and Condition Condition: STABLE Disposition: Home
== END 2019-06-25 20:50 | disposition home or self-care (01) ==
LOC: UCEAST 19:35
DX: R42 Dizziness and giddiness (principal); R07.89 Other chest pain; F20.9 Schizophrenia, unspecified; F32.9 Major depressive disorder, single episode, unspecified; F31.9 Bipolar disorder, unspecified; Z79.899 Other long term (current) drug therapy; Z88.0 Allergy status to penicillin
CPT/HCPCS: 99211; G0463

== ENCOUNTER 2020-07-07 10:05 | Inpatient (IN) ==
[2020-07-07 10:41] LABS: ABS Basophils 0.1 10^3/ul (0-0.2); ABS Eosinophils 0.2 10^3/ul (0-0.6); ABS Lymphocytes 2.4 10^3/ul (1.0-4.8); ABS Monocytes 0.4 10^3/ul (0-0.8); ABS Neutrophils 3.2 10^3/ul (1.5-7.7); Eosinophil % 2.8 %; Hematocrit 50 % (42-52); Hemoglobin 17.1 g/dL (14.0-18.0); Lymphocyte % 38.6 %; Mean Corpuscular HGB Conc 34 g/dL (31-36); Mean Corpuscular Hemoglobin 27 pg (27-31); Mean Corpuscular Volume 79 fL (80-94); Mean Platelet Volume 7.3 fL (7.4-10.4); Platelet Count 272 10^3/uL (150-450); Red Blood Count 6.28 10^6 /uL (4.18-5.48); Red Cell Distribution Width 14 % (10-15); White Blood Count 6.3 10^3/uL (3.5-10.8)
[2020-07-07 11:01] LABS: Urine Appearance Clear; Urine Bilirubin Negative (Negative); Urine Blood Negative (Negative); Urine Color Straw; Urine Glucose Negative (Negative); Urine Ketones Negative (Negative); Urine Nitrite Negative (Negative); Urine Protein Negative (Negative); Urine Specific Gravity 1.005 (1.010-1.030); Urine Urobilinogen Negative (Negative)
[2020-07-07 11:05] LABS: ALT 41 U/L (7-52); AST 33 U/L (13-39); Albumin 4.7 g/dL (3.2-5.2); Albumin/Globulin Ratio 1.6 (1-3); Alkaline Phosphatase 55 U/L (34-104); Anion Gap 7 mmol/L (2-11); BUN/Creatinine Ratio 10.1 (8-20); Blood Urea Nitrogen 11 mg/dL (6-24); CO2 Carbon Dioxide 26 mmol/L (22-32); Calcium 10.3 mg/dL (8.6-10.3); Chloride 102 mmol/L (101-111); EGFR African American 98.9 (>60); EGFR Non-African American 81.8 (>60); Globulin 2.9 g/dL (2-4); Glucose 92 mg/dL (70-100); Potassium 4.2 mmol/L (3.5-5.0); Sodium 135 mmol/L (135-145); Total Protein 7.6 g/dL (6.4-8.9)
[2020-07-07 11:40] LABS: Urine Benzodiazepine Screen None Detected (None Detect); Urine Cannabinoids Screen None Detected (None Detect); Urine Opiates Screen None Detected (None Detect)
[2020-07-07 11:43] LABS: TSH Ultra Thyroid Stim Horm 2.47 mcIU/mL (0.34-5.60)
[2020-07-07] MEDS ORDERED: Al Hydrox/Mg Hydrox/Simet LIQ 30 ML UDC PO PRN (11:47)
[2020-07-07] MEDS ORDERED: Nicotine GUM 2MG FRUIT FLAVOR PO PRN (11:47)
[2020-07-07 12:06] LABS: Acetaminophen < 15 mcg/mL; Alcohol, S < 10 mg/dL (<10); Salicylate < 2.50 mg/dL (<30)
[2020-07-08] MEDS: Vitamin THERAPEUTIC TAB PO SCH (07:56)
[2020-07-08] MEDS: Nicotine PATCH 14 MG/24 HR PATCH TRANSDERM SCH (07:57)
[2020-07-09 08:03] LABS: HDL Cholesterol 30.8 mg/dL
[2020-07-09] MEDS: Nicotine PATCH 14 MG/24 HR PATCH TRANSDERM SCH (09:42)
[2020-07-09] MEDS: Vitamin THERAPEUTIC TAB PO SCH (09:42)
[2020-07-10] MEDS: Nicotine PATCH 14 MG/24 HR PATCH TRANSDERM SCH (08:53)
[2020-07-10] MEDS: Vitamin THERAPEUTIC TAB PO SCH (08:53)
[2020-07-11] MEDS: Vitamin THERAPEUTIC TAB PO SCH (08:58)
[2020-07-11] MEDS: Nicotine PATCH 14 MG/24 HR PATCH TRANSDERM SCH (08:58)
[2020-07-12 07:56] VITALS: BP 127/76
[2020-07-12] MEDS: Vitamin THERAPEUTIC TAB PO SCH (08:41)
[2020-07-12] MEDS: Nicotine PATCH 14 MG/24 HR PATCH TRANSDERM SCH (08:41)
== END 2020-07-12 15:14 | disposition home or self-care (01) | DRG 750 ==
LOC: ED 10:05 → BSU 11:47 → ED 13:23 → BSU 07-11 16:09
PROVIDERS: ADMIT Psychiatry & Neurology Psychiatry; ATTEND Psychiatry & Neurology Psychiatry

== ENCOUNTER 2020-10-08 16:13 | Inpatient (IN) ==
[2020-10-08 16:49] LABS: ABS Eosinophils 0.2 10^3/ul (0-0.6); ABS Lymphocytes 2.2 10^3/ul (1.0-4.8); ABS Monocytes 0.6 10^3/ul (0-0.8); ABS Neutrophils 4.8 10^3/ul (1.5-7.7); Eosinophil % 2.5 %; Hematocrit 48 % (42-52); Hemoglobin 16.6 g/dL (14.0-18.0); Lymphocyte % 28.2 %; Mean Corpuscular HGB Conc 35 g/dL (31-36); Mean Corpuscular Hemoglobin 28 pg (27-31); Mean Corpuscular Volume 80 fL (80-94); Mean Platelet Volume 7.3 fL (7.4-10.4); Platelet Count 284 10^3/uL (150-450); Red Blood Count 5.97 10^6 /uL (4.18-5.48); Red Cell Distribution Width 14 % (10-15); White Blood Count 7.9 10^3/uL (3.5-10.8)
[2020-10-08 17:16] LABS: ALT 32 U/L (7-52); AST 24 U/L (13-39); Albumin 4.7 g/dL (3.2-5.2); Albumin/Globulin Ratio 1.6 (1-3); Alkaline Phosphatase 56 U/L (35-149); Anion Gap 7 mmol/L (2-11); Blood Urea Nitrogen 14 mg/dL (6-24); CO2 Carbon Dioxide 27 mmol/L (22-32); Chloride 106 mmol/L (101-111); EGFR African American 97.9 (>60); EGFR Non-African American 80.9 (>60); Globulin 2.9 g/dL (2-4); Glucose 89 mg/dL (70-100); Potassium 4.4 mmol/L (3.5-5.0); Sodium 140 mmol/L (135-145); Total Protein 7.6 g/dL (6.4-8.9)
[2020-10-08 17:18] LABS: Acetaminophen < 15 mcg/mL; Alcohol, S 16 mg/dL (<10); Salicylate < 2.50 mg/dL (<30)
[2020-10-08] MEDS ORDERED: Al Hydrox/Mg Hydrox/Simet LIQ 30 ML UDC PO PRN (21:42)
[2020-10-08] MEDS ORDERED: diPHENhydraMINE IV 50 MG/ML 1 ml VIAL (BENADRYL) IM ONE (22:30)
[2020-10-08] MEDS ORDERED: chlorproMAZINE 25 MG/ML 2 ML (50 MG) IM ONE (22:30)
[2020-10-08] MEDS ORDERED: diPHENhydraMINE IV 50 MG/ML 1 ml VIAL (BENADRYL) ONE (22:32)
[2020-10-08] MEDS ORDERED: chlorproMAZINE 25 MG/ML 2 ML (50 MG) ONE (22:34)
[2020-10-08] MEDS ORDERED: LORazepam 2 mg VIAL 1 ml ONE (22:59)
[2020-10-08] MEDS ORDERED: Lorazepam PYXIS KEY ONE (23:00)
[2020-10-08] MEDS ORDERED: LORazepam 2 mg VIAL 1 ml IM ONE (23:00)
[2020-10-09] MEDS: Vitamin THERAPEUTIC TAB PO SCH (08:29)
[2020-10-10] MEDS: Vitamin THERAPEUTIC TAB PO SCH (08:53)
[2020-10-11] MEDS: Vitamin THERAPEUTIC TAB PO SCH (07:58)
[2020-10-12 08:34] LABS: HDL Cholesterol 29.4 mg/dL
[2020-10-12] MEDS: Vitamin THERAPEUTIC TAB PO SCH (10:39)
[2020-10-13] MEDS: Vitamin THERAPEUTIC TAB PO SCH (09:14)
[2020-10-13] MEDS ORDERED: COVID-19 VACCINE, MRNA(PFIZER)/PF 30 MCG/0.3 ML IM ONE (15:30)
[2020-10-14] MEDS: Vitamin THERAPEUTIC TAB PO SCH (10:16)
[2020-10-14 11:28] VITALS: BP 130/86
== END 2020-10-14 15:30 | disposition home or self-care (01) ==
LOC: ED 16:13 → BSU 21:04
PROVIDERS: ADMIT Psychiatry & Neurology Addiction Psychiatry; ATTEND Psychiatry & Neurology Psychiatry

== ENCOUNTER 2020-12-23 18:01 | Inpatient (IN) ==
[2020-12-23 20:09] LABS: ABS Basophils 0.1 10^3/ul (0-0.2); ABS Eosinophils 0.2 10^3/ul (0-0.6); ABS Lymphocytes 3.3 10^3/ul (1.0-4.8); ABS Monocytes 0.6 10^3/ul (0-0.8); ABS Neutrophils 4.1 10^3/ul (1.5-7.7); Eosinophil % 2.5 %; Hematocrit 48 % (42-52); Hemoglobin 16.7 g/dL (14.0-18.0); Lymphocyte % 39.7 %; Mean Corpuscular HGB Conc 35 g/dL (31-36); Mean Corpuscular Hemoglobin 27 pg (27-31); Mean Corpuscular Volume 79 fL (80-94); Mean Platelet Volume 7.2 fL (7.4-10.4); Nucleated Red Blood Cells % 0.1; Platelet Count 273 10^3/uL (150-450); Red Blood Count 6.09 10^6 /uL (4.18-5.48); Red Cell Distribution Width 14 % (10-15); White Blood Count 8.2 10^3/uL (3.5-10.8)
[2020-12-23 20:09] LABS: Urine Appearance Clear; Urine Bilirubin Negative (Negative); Urine Blood Negative (Negative); Urine Color Yellow; Urine Glucose Negative (Negative); Urine Ketones Negative (Negative); Urine Nitrite Negative (Negative); Urine Protein Negative (Negative); Urine Specific Gravity 1.025 (1.002-1.030); Urine Urobilinogen Negative (Negative)
[2020-12-23 20:13] LABS: Urine Benzodiazepine Screen None Detected (None Detect); Urine Cannabinoids Screen None Detected (None Detect); Urine Opiates Screen None Detected (None Detect)
[2020-12-23 20:26] LABS: ALT 34 U/L (7-52); AST 24 U/L (13-39); Albumin 4.7 g/dL (3.2-5.2); Albumin/Globulin Ratio 1.6 (1-3); Alkaline Phosphatase 68 U/L (35-149); Anion Gap 7 mmol/L (2-11); Blood Urea Nitrogen 11 mg/dL (6-24); CO2 Carbon Dioxide 24 mmol/L (22-32); Calcium 9.5 mg/dL (8.6-10.3); Chloride 107 mmol/L (101-111); EGFR African American 95.2 (>60); EGFR Non-African American 78.6 (>60); Glucose 103 mg/dL (70-100); Potassium 4.1 mmol/L (3.5-5.0); Sodium 138 mmol/L (135-145); Total Protein 7.7 g/dL (6.4-8.9)
[2020-12-23 21:09] LABS: Acetaminophen < 15 mcg/mL; Alcohol, S < 13 mg/dL (<13); Salicylate < 2.50 mg/dL (<30)
[2020-12-23 21:24] LABS: TSH Ultra Thyroid Stim Horm 3.57 mcIU/mL (0.34-5.60)
[2020-12-24] MEDS ORDERED: Al Hydrox/Mg Hydrox/Simet LIQ 30 ML UDC PO PRN (00:20)
[2020-12-24] MEDS: Vitamin THERAPEUTIC TAB PO SCH (08:25)
[2020-12-25] MEDS: Vitamin THERAPEUTIC TAB PO SCH (09:57)
[2020-12-26 08:37] LABS: HDL Cholesterol 29.3 mg/dL
[2020-12-26] MEDS: Vitamin THERAPEUTIC TAB PO SCH (09:06)
[2020-12-27 07:31] VITALS: BP 109/73
[2020-12-27] MEDS: Vitamin THERAPEUTIC TAB PO SCH (13:38)
== END 2020-12-27 18:12 | disposition home or self-care (01) | DRG 750 ==
LOC: ED 18:01 → BSU 22:44
PROVIDERS: ADMIT Psychiatry & Neurology Psychiatry; ATTEND Psychiatry & Neurology Psychiatry